=== PATIENT | female | born 2000 | race Asian ===

== ENCOUNTER 2022-08-10 10:13 | Outpatient (REF) | payer BC, MEDICAID, SELFPAY ==
--- NOTE | ~2022-08-10 | XR_ITS ---
EXAMINATION: XR foot LT min 3V CLINICAL INFORMATION: Trauma COMPARISON: None TECHNIQUE: 3 views of the foot FINDINGS: No fracture or dislocation. Joint spaces are maintained. No joint effusion. Minimal soft tissue swelling along the dorsum of the distal foot. XR/XR foot LT min 3V IMPRESSION: Minimal soft tissue swelling along the dorsum of the distal foot. No fracture or dislocation.
== END 2022-08-10 10:14 | disposition home or self-care (01) ==
LOC: HO.HMGCX 10:13
PROVIDERS: PCP Internal Medicine; Visit Provider Physician Assistant
DX: S99.922D Unspecified injury of left foot, subsequent encounter (principal)
CPT/HCPCS: 73630

== ENCOUNTER 2022-11-21 18:42 | Emergency (ER) | payer BC, MEDICAID, SELFPAY ==
--- NOTE | ~2022-11-21 | US_ITS ---
EXAMINATION: US ABDOMEN LIMITED CLINICAL INFORMATION: Right upper quadrant pain. COMPARISON: None available. TECHNIQUE: Real-time imaging of the right upper quadrant abdominal viscera. FINDINGS: PANCREAS: Normal. LIVER: Normal. The liver is normal in size. The liver contour is normal. Parenchymal echogenicity is normal. No focal hepatic lesion. There is no intrahepatic biliary duct dilatation seen. GALLBLADDER: Normal. The gallbladder is physiologically distended without evidence of stones, sludge, polyps, wall thickening or pericholecystic fluid. COMMON BILE DUCT: Normal in caliber measuring 0.2 cm in diameter. RIGHT KIDNEY: Normal. No hydronephrosis. No renal calculi or focal parenchymal lesions. The kidney measures 10.3 cm in maximum dimension. FREE FLUID: None. US/US abdomen limited IMPRESSION: Unremarkable limited abdomen ultrasound.
--- NOTE | ~2022-11-21 | XR_ITS ---
EXAMINATION: XR CHEST CLINICAL INFORMATION: Cough and fever COMPARISON: None available. TECHNIQUE: Frontal view of the chest was obtained. FINDINGS: No significant abnormality is noted involving the heart, lungs, mediastinum, bony thorax or soft tissues. XR/XR chest 1V IMPRESSION: Unremarkable chest examination.
[2022-11-21 19:00] VITALS: BP 129/59; PULSE 116; RESP 20; TEMP 37.6; O2SAT 100; BMI 18.5
--- NOTE | 2022-11-21 19:00 | ED.URI ---
HPI - URI/Sore Throat General Chief Complaint: General Medical <ANAID Fuchs Last Filed: 11/21/22 20:55> Stated Complaint: Fever/Chills/Abd cramps <ANAID Fuchs Last Filed: 11/21/22 20:55> Time Seen by Provider: 11/21/22 20:33 <ANAID Fuchs Last Filed: 11/21/22 20:55> Source: patient <ANAID Fuchs Last Filed: 11/21/22 20:55> Mode of arrival: ambulatory <ANAID Fuchs Last Filed: 11/21/22 20:55> History of Present Illness HPI Narrative: 22yo F w/PMHx asthma c/o fever Tmax 102 (took Tyenol at 1PM), cough, mild SOB, chest discomfort when coughing, and myalgias/chills x today. Also reports severe upper abdominal pain s/p eating this afternoon. Denies travel/sick contacts, vomiting, urinary sx, sick contacts <ANAID Fuchs Last Filed: 11/21/22 20:55> MD elicited complaint: fever, cough, rhinorrhea and nasal congestion <ANAID Fuchs Last Filed: 11/21/22 20:55> Related Data Home Medications: Home Medications Medication Instructions Recorded Confirmed cetirizine 10 mg tablet 10 mg PO DAILY 09/18/21 clindamycin phosphate 1 % topical ml topical 09/18/21 solution famotidine 20 mg tablet 20 mg PO BID 09/18/21 fluticasone propionate 50 1 spray intranasal DAILY 09/18/21 mcg/actuation nasal spray,suspension medroxyprogesterone 150 mg/mL mg IM 09/18/21 intramuscular suspension Previous Rx's Medication Instructions Recorded mupirocin 2 % topical ointment 1 appl topical TID #15 grams 09/18/21 <ANAID Fuchs Last Filed: 11/21/22 20:55> Allergies/Adverse Reactions: Allergies Allergy/AdvReac Type Severity Reaction Status Date / Time wheat Allergy Gastrointestinal Verified 11/21/22 19:04 Upset <ANAID Fuchs Last Filed: 11/21/22 20:55> Review of Systems Review of Systems: Constitutional: + Fever, + Chills, +fatigue ENT/Mouth: No Ear Pain, + Nasal Congestion, No Sinus Pain, No Hoarseness, No sore throat, + Rhinorrhea, No Swallowing Difficulty Cardiovascular: + Chest Pain when coughing, + SOB Respiratory: + Cough, No Sputum, No Wheezing Gastrointestinal: + Nausea, No Vomiting, No Diarrhea, No Constipation, + Abdominal pain Genitourinary: No Dysuria, No Urinary Frequency, No Hematuria, No Urgency, No Flank Pain Musculoskeletal: No joint pain, No Myalgias, No Joint Swelling Skin: No Skin Lesions, No rash Neuro: No Weakness, No Numbness, No Paresthesias <ANAID Fuchs - Last Filed: 11/21/22 20:55> Yes all other systems are reviewed and are negative <ANAID Fuchs - Last Filed: 11/21/22 20:55> Constitutional: Constitutional: Reports as per HPI <ANAID Fuchs - Last Filed: 11/21/22 20:55> [facility] Past Medical History Attestation statement: The following information was validated with the patient. <ANAID Fuchs - Last Filed: 11/21/22 20:55> Social History Social History: Social History Patient Tobacco Use Status: Never used Tobacco Advance Directives: No Advance Directives Information Provided: No <ANAID Fuchs - Last Filed: 11/21/22 20:55> Physical Exam Vital Signs: Vital Signs: Last Vital Signs Temp 100.0 F 11/21/22 21:04 Pulse 116 H 11/21/22 19:00 Resp 20 11/21/22 19:00 BP 129/59 L 11/21/22 19:00 Pulse Ox 100 11/21/22 19:00 O2 Del Method 11/21/22 19:00 BMI result Body Mass Index 18.5 <ANAID Fuchs Last Filed: 11/21/22 20:55> Vital Signs: Last Vital Signs Temp 100.0 F 11/21/22 21:04 Pulse 116 H 11/21/22 19:00 Resp 20 11/21/22 19:00 BP 129/59 L 11/21/22 19:00 Pulse Ox 100 11/21/22 19:00 O2 Del Method 11/21/22 19:00 BMI result Body Mass Index 18.5 <Hunter Rodriguez - Last Filed: 11/21/22 23:54> Const: General: cooperative, healthy appearing and no acute distress <ANAID Fuchs - Last Filed: 11/21/22 20:55> Orientation/consciousness: patient oriented x3 <ANAID Fuchs - Last Filed: 11/21/22 20:55> Limitations: no limitations <ANAID Fuchs - Last Filed: 11/21/22 20:55> HEENT: Head: Yes normal to inspection and Yes atraumatic <ANAID Fuchs - Last Filed: 11/21/22 20:55> Ears: hearing grossly normal bilaterally, external ears normal, TM's normal bilaterally and mastoids normal <ANAID Fuchs - Last Filed: 11/21/22 20:55> General nose exam: Normal external nose present <ANAID Fuchs - Last Filed: 11/21/22 20:55> Face and sinus: Yes normal facial exam <ANAID Fuchs - Last Filed: 11/21/22 20:55> Mouth: Normal oral and palatal mucosa present <ANAID Fuchs - Last Filed: 11/21/22 20:55> Throat: Yes tonsils normal, Yes uvula midline, No peritonsillar mass, Yes posterior oropharynx abnormal (mild erythema), No uvula laterally displaced and No uvular edema <ANAID Fuchs - Last Filed: 11/21/22 20:55> Eyes: General: appearance normal, both eyes and all related structures <ANAID Fuchs - Last Filed: 11/21/22 20:55> EOM: EOMs intact bilaterally <ANAID Fuchs - Last Filed: 11/21/22 20:55> Neck: Neck: Yes normal visual inspection and Yes no meningeal signs <ANAID Fuchs - Last Filed: 11/21/22 20:55> Resp: Effort & Inspection: normal respiratory effort and no respiratory distress <ANAID Fuchs - Last Filed: 11/21/22 20:55> Auscultation: clear to auscultation bilaterally, no crackles, no rhonchi and no wheezes <ANAID Fuchs - Last Filed: 11/21/22 20:55> Cardio: Rate: regular rate <ANAID Fuchs - Last Filed: 11/21/22 20:55> Heart sounds: S1 normal heart sound present and S2 normal heart sound present <ANAID Fuchs - Last Filed: 11/21/22 20:55> GI: Inspection: Yes normal to inspection <ANAID Fuchs - Last Filed: 11/21/22 20:55> Palpation (GI): Soft to palpation, Tenderness to palpation present (GI) in the epigastrum, in the LUQ and in the RUQ; with no rebound tenderness, no guarding and not rigid <ANAID Fuchs - Last Filed: 11/21/22 20:55> Skin: Rashes: no rashes <ANAID Fuchs - Last Filed: 11/21/22 20:55> Wounds: no wounds <ANAID Fuchs - Last Filed: 11/21/22 20:55> Neuro: General: patient oriented x3, tone normal and no meningeal signs <ANAID Fuchs - Last Filed: 11/21/22 20:55> Gait exam (Neuro): Normal gait present <ANAID Fuchs - Last Filed: 11/21/22 20:55> Extrem: General: Yes normal to inspection <ANAID Fuchs - Last Filed: 11/21/22 20:55> Course Course Course Narrative: RME-- 22yo F w/PMHx asthma c/o fever Tmax 102 (took Tyenol at 1PM), cough, SOB, chest discomfort when coughing, and myalgias/chills x today. Denies travel/sick contacts Tachycardic likely from fever, Lungs CTA, TMs WNL, oropharynx mildly erythematous, no exudates or evident of [employer] low suspicion for severe sepsis as likely viral COVID/FLU, CXR, Strep, Motrin ordered -- COVID-19 positive. Influenza and rapid strep negative XR chest 1V IMPRESSION: Unremarkable chest examination. -2100--ED care transferred to ANAID Galvan pending labs, UA and US Results discussed with patient including worrisome signs and symptoms and strict return precautions, and when to return to the emergency department. They verbalized understanding and feel safe for discharge at this time. <ANAID Fuchs - Last Filed: 11/21/22 20:55> Reevaluation(s) Reevaluation #1: Patient received in sign-out at change of shift pending ultrasound the gallbladder, labs given abdominal pain. These tests are unremarkable. The patient's symptoms are likely attributed to COVID-19. She is stable for discharge <Hunter Rodriguez - Last Filed: 11/21/22 23:54> Time: 23:53 <Hunter Rodriguez - Last Filed: 11/21/22 23:54> Medications Administered Discontinued Medications Generic Name Dose Route Start Last Admin Trade Name Freq PRN Reason Stop Dose Admin Sodium Chloride 1,000 mls @ 999 mls/hr 11/21/22 20:45 11/21/22 23:23 Ns IV 11/21/22 21:45 Infused .Q1H1M KETTY Infusion Ibuprofen 400 mg 11/21/22 19:00 11/21/22 19:27 Ibuprofen 400 Mg Tablet PO 11/21/22 19:01 400 mg ONCE ONE Administration <ANAID Fuchs - Last Filed: 11/21/22 20:55> Medications Administered Discontinued Medications Generic Name Dose Route Start Last Admin Trade Name Freq PRN Reason Stop Dose Admin Sodium Chloride 1,000 mls @ 999 mls/hr 11/21/22 20:45 11/21/22 23:23 Ns IV 11/21/22 21:45 Infused .Q1H1M KETTY Infusion Ibuprofen 400 mg 11/21/22 19:00 11/21/22 19:27 Ibuprofen 400 Mg Tablet PO 11/21/22 19:01 400 mg ONCE ONE Administration <Hunter Rodriguez - Last Filed: 11/21/22 23:54> Medical Decision Making Medical Decision Making MDM Narrative: 22yo F w/PMHx asthma c/o fever Tmax 102 (took Tyenol at 1PM), cough, mild SOB, chest discomfort when coughing, and myalgias/chills x today. Also reports severe upper abdominal pain s/p eating this afternoon. On exam low-grade temp 99.7 degrees, tachycardic likely from fever, lungs CTA, abdomen soft with upper tenderness, no rebound or guarding. Concern for viral illness vs pneumonia vs pancreatitis/ cholecystitis/lithiasis. low suspicion for appendicitis/ diverticulitis, ACS/ PE or sepsis at this time. Likely viral etiology Plan: COVID-19/ influenza testing, rapid strep, PO Motrin, labs/ultrasound Please refer to course for remaining clinical decision making, interpretation of labs/imaging results, and discussions with consultants and/or family members. <ANAID Fuchs - Last Filed: 11/21/22 20:55> Differential Diagnosis Differential Diagnoses: The differential diagnosis associated with the presentation includes <ANAID Fuchs - Last Filed: 11/21/22 20:55> As above <ANAID Fuchs - Last Filed: 11/21/22 20:55> Admission/Observation Consideration of admission/observation: Escalation of care including admission/observation considered <ANAID Fuchs - Last Filed: 11/21/22 20:55> Lab Data MDM Lab Attestation statement: I reviewed the patient's lab results. <ANAID Fuchs - Last Filed: 11/21/22 20:55> Result Diagrams: 11/21/22 21:00 11/21/22 21:01 <ANAID Fuchs - Last Filed: 11/21/22 20:55> Labs: Lab Results 11/21/22 11/21/22 11/21/22 Range/Units 19:08 19:08 19:08 WBC (4.8-10.8) X10*3/uL RBC (4.20-5.50) X10*6/uL Hgb (12.0-16.0) g/dl Hct (37.0-47.0) % MCV (80.0-98.0) fL MCH (27.0-33.0) pg MCHC (31.0-35.0) g/dl RDW (11.0-16.0) % Plt Count (160-400) X10*3/uL MPV (9.4-12.3) fL Immature Gran % (Auto) (0.0-0.4) % Neut % (Auto) (45-73) % Lymph % (Auto) (20-40) % [place] % (Auto) (2-11) % Eos % (Auto) (0-4) % Baso % (Auto) (0-2) % Lymph # (Auto) (1.2-4.9) X10*3/uL [place] # (Auto) (0.1-1.2) X10*3/uL Eos # (Auto) (0.0-0.4) X10*3/uL Baso # (Auto) (0.0-0.2) X10*3/uL Abs Immat Gran (auto) (0.00-0.03) X10*3/uL Absolute Neuts (auto) (2.0-8.3) x10*3/uL Absolute Nucleated RBC (0.0-0.012) X10*3/uL Nucleated RBC % (auto) (0.0-0.2) /100WBC Sodium (135-145) mmol/L Potassium (3.3-5.1) mmol/L Chloride (96-108) mmol/L Carbon Dioxide (22-29) mmol/L Anion Gap (12-20) BUN (9-16) mg/dL Creatinine (0.5-1.4) mg/dL Estim Creat Clear Calc Estimated GFR Random Glucose (60-115) mg/dL Calcium (8.4-10.2) mg/dL Magnesium (1.6-2.6) mg/dL Total Bilirubin (0.0-1.0) mg/dL Direct Bilirubin (0.0-0.5) mg/dL AST (5-31) U/L ALT (0-31) U/L Alkaline Phosphatase (39-117) U/L Total Protein (6.5-8.0) g/dL Albumin (3.5-5.0) g/dL Lipase (8-78) U/L COVID-19 (YOMI) Positive A (Negative) COVID-19 Clin Com See Note Influenza Type A (TALA) Negative (Negative) Influenza Type B (TALA) Negative (Negative) Influenza A & B Note See Note S. pyogenes GrpA TALA Negative (Negative) 11/21/22 11/21/22 Range/Units 21:00 21:01 WBC 5.6 (4.8-10.8) X10*3/uL RBC 4.47 (4.20-5.50) X10*6/uL Hgb 13.3 (12.0-16.0) g/dl Hct 39.6 (37.0-47.0) % MCV 88.6 (80.0-98.0) fL MCH 29.8 (27.0-33.0) pg MCHC 33.6 (31.0-35.0) g/dl RDW 12.4 (11.0-16.0) % Plt Count 245 (160-400) X10*3/uL MPV 8.5 L (9.4-12.3) fL Immature Gran % (Auto) 0.2 (0.0-0.4) % Neut % (Auto) 85.6 H (45-73) % Lymph % (Auto) 3.1 L (20-40) % [place] % (Auto) 10.6 (2-11) % Eos % (Auto) 0.0 (0-4) % Baso % (Auto) 0.5 (0-2) % Lymph # (Auto) 0.2 L (1.2-4.9) X10*3/uL [place] # (Auto) 0.6 (0.1-1.2) X10*3/uL Eos # (Auto) 0.0 (0.0-0.4) X10*3/uL Baso # (Auto) 0.0 (0.0-0.2) X10*3/uL Abs Immat Gran (auto) 0.01 (0.00-0.03) X10*3/uL Absolute Neuts (auto) 4.8 (2.0-8.3) x10*3/uL Absolute Nucleated RBC 0.000 (0.0-0.012) X10*3/uL Nucleated RBC % (auto) 0.0 (0.0-0.2) /100WBC Sodium 136 (135-145) mmol/L Potassium 3.9 (3.3-5.1) mmol/L Chloride 104 (96-108) mmol/L Carbon Dioxide 22 (22-29) mmol/L Anion Gap 14 (12-20) BUN 6 L (9-16) mg/dL Creatinine 0.71 (0.5-1.4) mg/dL Estim Creat Clear Calc 85.7 Estimated GFR > 60 Random Glucose 107 (60-115) mg/dL Calcium 8.8 (8.4-10.2) mg/dL Magnesium 2.0 (1.6-2.6) mg/dL Total Bilirubin 0.7 (0.0-1.0) mg/dL Direct Bilirubin 0.2 (0.0-0.5) mg/dL AST 21 (5-31) U/L ALT 16 (0-31) U/L Alkaline Phosphatase 57 (39-117) U/L Total Protein 6.9 (6.5-8.0) g/dL Albumin 4.3 (3.5-5.0) g/dL Lipase 28 (8-78) U/L COVID-19 (YOMI) (Negative) COVID-19 Clin Com Influenza Type A (TALA) (Negative) Influenza Type B (TALA) (Negative) Influenza A & B Note S. pyogenes GrpA TALA (Negative) <ANAID Fuchs - Last Filed: 11/21/22 20:55> Lab Results 11/21/22 11/21/22 11/21/22 Range/Units 19:08 19:08 19:08 WBC (4.8-10.8) X10*3/uL RBC (4.20-5.50) X10*6/uL Hgb (12.0-16.0) g/dl Hct (37.0-47.0) % MCV (80.0-98.0) fL MCH (27.0-33.0) pg MCHC (31.0-35.0) g/dl RDW (11.0-16.0) % Plt Count (160-400) X10*3/uL MPV (9.4-12.3) fL Immature Gran % (Auto) (0.0-0.4) % Neut % (Auto) (45-73) % Lymph % (Auto) (20-40) % [place] % (Auto) (2-11) % Eos % (Auto) (0-4) % Baso % (Auto) (0-2) % Lymph # (Auto) (1.2-4.9) X10*3/uL [place] # (Auto) (0.1-1.2) X10*3/uL Eos # (Auto) (0.0-0.4) X10*3/uL Baso # (Auto) (0.0-0.2) X10*3/uL Abs Immat Gran (auto) (0.00-0.03) X10*3/uL Absolute Neuts (auto) (2.0-8.3) x10*3/uL Absolute Nucleated RBC (0.0-0.012) X10*3/uL Nucleated RBC % (auto) (0.0-0.2) /100WBC Sodium (135-145) mmol/L Potassium (3.3-5.1) mmol/L Chloride (96-108) mmol/L Carbon Dioxide (22-29) mmol/L Anion Gap (12-20) BUN (9-16) mg/dL Creatinine (0.5-1.4) mg/dL Estim Creat Clear Calc Estimated GFR Random Glucose (60-115) mg/dL Calcium (8.4-10.2) mg/dL Magnesium (1.6-2.6) mg/dL Total Bilirubin (0.0-1.0) mg/dL Direct Bilirubin (0.0-0.5) mg/dL AST (5-31) U/L ALT (0-31) U/L Alkaline Phosphatase (39-117) U/L Total Protein (6.5-8.0) g/dL Albumin (3.5-5.0) g/dL Lipase (8-78) U/L COVID-19 (YOMI) Positive A (Negative) COVID-19 Clin Com See Note Influenza Type A (TALA) Negative (Negative) Influenza Type B (TALA) Negative (Negative) Influenza A & B Note See Note S. pyogenes GrpA TALA Negative (Negative) 11/21/22 11/21/22 Range/Units 21:00 21:01 WBC 5.6 (4.8-10.8) X10*3/uL RBC 4.47 (4.20-5.50) X10*6/uL Hgb 13.3 (12.0-16.0) g/dl Hct 39.6 (37.0-47.0) % MCV 88.6 (80.0-98.0) fL MCH 29.8 (27.0-33.0) pg MCHC 33.6 (31.0-35.0) g/dl RDW 12.4 (11.0-16.0) % Plt Count 245 (160-400) X10*3/uL MPV 8.5 L (9.4-12.3) fL Immature Gran % (Auto) 0.2 (0.0-0.4) % Neut % (Auto) 85.6 H (45-73) % Lymph % (Auto) 3.1 L (20-40) % [place] % (Auto) 10.6 (2-11) % Eos % (Auto) 0.0 (0-4) % Baso % (Auto) 0.5 (0-2) % Lymph # (Auto) 0.2 L (1.2-4.9) X10*3/uL [place] # (Auto) 0.6 (0.1-1.2) X10*3/uL Eos # (Auto) 0.0 (0.0-0.4) X10*3/uL Baso # (Auto) 0.0 (0.0-0.2) X10*3/uL Abs Immat Gran (auto) 0.01 (0.00-0.03) X10*3/uL Absolute Neuts (auto) 4.8 (2.0-8.3) x10*3/uL Absolute Nucleated RBC 0.000 (0.0-0.012) X10*3/uL Nucleated RBC % (auto) 0.0 (0.0-0.2) /100WBC Sodium 136 (135-145) mmol/L Potassium 3.9 (3.3-5.1) mmol/L Chloride 104 (96-108) mmol/L Carbon Dioxide 22 (22-29) mmol/L Anion Gap 14 (12-20) BUN 6 L (9-16) mg/dL Creatinine 0.71 (0.5-1.4) mg/dL Estim Creat Clear Calc 85.7 Estimated GFR > 60 Random Glucose 107 (60-115) mg/dL Calcium 8.8 (8.4-10.2) mg/dL Magnesium 2.0 (1.6-2.6) mg/dL Total Bilirubin 0.7 (0.0-1.0) mg/dL Direct Bilirubin 0.2 (0.0-0.5) mg/dL AST 21 (5-31) U/L ALT 16 (0-31) U/L Alkaline Phosphatase 57 (39-117) U/L Total Protein 6.9 (6.5-8.0) g/dL Albumin 4.3 (3.5-5.0) g/dL Lipase 28 (8-78) U/L COVID-19 (YOMI) (Negative) COVID-19 Clin Com Influenza Type A (TALA) (Negative) Influenza Type B (TALA) (Negative) Influenza A & B Note S. pyogenes GrpA TALA (Negative) <Hunter Rodriguez - Last Filed: 11/21/22 23:54> Radiology Impression Discussion of test interpretation with radiology: I have reviewed the radiologist's reading. <ANAID Fuhcs - Last Filed: 11/21/22 20:55> External Record Review External record reviewed: Inpatient record, Office record, Outpatient record, Prior outpatient labs, Prior outpatient radiology, Primary care record and Outside ED record <ANAID Fuchs - Last Filed: 11/21/22 20:55> Discharge Plan Discharge Clinical Impression: [id number] <ANAID Fuchs - Last Filed: 11/21/22 20:55> Patient Disposition: Home, Self-Care <ANAID Fuchs - Last Filed: 11/21/22 20:55> Instructions: COVID-19 (Coronavirus Disease 2019) (ED) <ANAID Fuchs - Last Filed: 11/21/22 20:55> Additional Instructions: At this time you will be okay for discharge. Please self isolate for 5-10 days. Do not expose yourself to others. You may not go to work or school. Please continue to follow cold instructions and wash your hands frequently. You may take Tylenol / Motrin as directed on the bottle for pain or fever. If you have constant or persistent shortness of breath, fever unresolved with medications, chest pain, or your unable to eat or drink please return to the ED CDC Guidelines for home isolation: - Stay away from others - WEAR A MASK if you are sick AND STAY HOME - Cover your mouth and nose with a tissue when you cough or sneeze. Dispose of tissues in a lined trash can and wash your hands immediately with soap and water for at least 20 seconds. If soap and water are not available, clean hands with alcohol-based hand silk screen operator that contains at least 60% alcohol. - Clean your hands often with soap and water for at least 20 seconds - Avoid touching your eyes, nose and mouth with unwashed hands - Do not share dishes, drinking glasses, cups, eating utensils, towels, or bedding with other people in your home. After using these items, wash them thoroughly with soap and water or put in the courtesy clerk. - Clean high-touch surfaces in your isolation area ( sick room and bathroom) every day; let a caregiver clean and disinfect high-touch surfaces in other areas of the home. Clean the area or item with soap and water or another detergent if it is dirty. Then, use a household disinfectant. - Limit contact with pets and animals: If you must care for a pet, wash your hands before and after interacting with them) <ANAID Fuchs - Last Filed: 11/21/22 20:55> Prescriptions: No Action fluticasone propionate 50 mcg/actuation spray,suspension 1 spray intranasal DAILY medroxyprogesterone 150 mg/mL suspension IM cetirizine 10 mg tablet 10 mg PO DAILY famotidine 20 mg tablet 20 mg PO BID clindamycin phosphate 1 % solution topical mupirocin 2 % ointment 1 appl topical TID Qty: 15 0RF <ANAID Fuchs - Last Filed: 11/21/22 20:55> Referrals: Rylee Malave MD [Primary Care Provider] - 1 week <ANAID Fuchs - Last Filed: 11/21/22 20:55>
[2022-11-21] MEDS: Ibuprofen 400 MG TABLET PO (19:27)
[2022-11-21 19:30] LABS: COVID-19 Test Positive (Negative); IDNOW Serial# 08D9AD1C
[2022-11-21 19:39] LABS: IDNOW Serial# 6674DD1D; IDNOW Serial# BCCEAD1C; Influenza A Negative (Negative); Influenza B2 Negative (Negative); Strep A Nucleic Acid Negative (Negative)
[2022-11-21] MEDS: 0.9 % Sodium Chloride 1,000 ML 999 ML IV (21:01)
[2022-11-21 21:04] VITALS: TEMP 37.8
[2022-11-21 21:05] LABS: MANUAL DIFF FLAG NO
--- NOTE | 2022-11-21 21:06 | PC.NURSE ---
pt medicated per NOV- temp still elevated at 100.0 F 20g in R AC infusing NS 0.9%. pt awaiting abdominal ultrasound as well as lab results. resting quiety sig other at bedside
[2022-11-21 21:07] LABS: Basophils Percent Auto 0.5 % (0-2); Hematocrit 39.6 % (37.0-47.0); Hemoglobin 13.3 g/dl (12.0-16.0); Imm Gran Abs Auto 0.01 X10*3/uL (0.00-0.03); Imm Gran Pct Auto 0.2 % (0.0-0.4); Lymphocytes Absolute Auto 0.2 X10*3/uL (1.2-4.9); Lymphocytes Percent Auto 3.1 % (20-40); Mean Corpuscular HGB Conc 33.6 g/dl (31.0-35.0); Mean Corpuscular Hemoglobin 29.8 pg (27.0-33.0); Mean Corpuscular Volume 88.6 fL (80.0-98.0); Mean Platelet Volume 8.5 fL (9.4-12.3); Monocytes Absolute Auto 0.6 X10*3/uL (0.1-1.2); Monocytes Percent Auto 10.6 % (2-11); Neutrophils Absolute Auto 4.8 x10*3/uL (2.0-8.3); Neutrophils Percent Auto 85.6 % (45-73); Platelet Count 245 X10*3/uL (160-400); Red Blood Count 4.47 X10*6/uL (4.20-5.50); Red Cell Distribution Width 12.4 % (11.0-16.0); White Blood Count 5.6 X10*3/uL (4.8-10.8)
[2022-11-21 21:30] LABS: Alanine Aminotransferase 16 U/L (0-31); Albumin Level 4.3 g/dL (3.5-5.0); Alkaline Phosphatase 57 U/L (39-117); Anion Gap 14 (12-20); Aspartate Amino Transferase 21 U/L (5-31); Bilirubin Direct 0.2 mg/dL (0.0-0.5); Bilirubin Total 0.7 mg/dL (0.0-1.0); Blood Urea Nitrogen 6 mg/dL (9-16); Calcium 8.8 mg/dL (8.4-10.2); Carbon Dioxide 22 mmol/L (22-29); Chloride 104 mmol/L (96-108); Creatinine Clr Calc Pharmacy 85.7; Estimated Glomerular Filt Rate > 60; Glucose Random 107 mg/dL (60-115); Lipase 28 U/L (8-78); Potassium 3.9 mmol/L (3.3-5.1); Sodium 136 mmol/L (135-145); Total Protein 6.9 g/dL (6.5-8.0)
[2022-11-21 22:00] VITALS: BP 112/72; PULSE 64; RESP 18; O2SAT 96
== END 2022-11-22 00:01 | disposition home or self-care (01) ==
PROVIDERS: Physician Assistant; Emergency Provider Emergency Medicine; PCP Internal Medicine
DX: U07.1 COVID-19 (principal); R50.9 Fever, unspecified; R06.02 Shortness of breath; R00.0 Tachycardia, unspecified
CPT/HCPCS: 36415; 71045; 76705; 80048; 80076; 83690; 83735; 85025; 87502; 87635; 87651; 96360; 96361; 99284

== ENCOUNTER 2024-01-28 15:46 | Outpatient (AMB) | payer BC, SELFPAY ==
--- NOTE | 2024-01-28 15:54 | A.OFFPC_ITS ---
Vital Signs 01/28/24 15:56 Height 5 ft 1 in Weight 97 lb BMI 18.3 BP 110/66 Blood Pressure Location Rt brachial Position Sitting Pulse 72 Pulse Source Pulse Oximeter Pulse Oximetry (%) 99 Oxygen Delivery Method Room Air Intake Visit Reasons: New patient Intake Note: Patient here to establish care. pt would like to have allergy testing done for wheat. Allergies wheat Allergy (Verified 01/28/24 17:20) Gastrointestinal Upset Medication List - Last Reconciled 01/28/24 by ANGELIKA Krishnamurthy albuterol 90 mcg/actuation mcg inhalation cetirizine 10 mg PO DAILY Tobacco use date assessed: 01/28/24 Dental Screening Dental Screen Date: 01/28/24 Did you have a dental visit in the last 12 months?: No Did you have a dental problem in the last 6 months where you did not have access to dental care?: No Was dental information given to patient?: Patient has dentist HPI New patient HPI Details New pt is here for a PE. Will order labs. Has a lead python developer. Pt is interested in seeing a therapist. Will have team reach out to pt. Denies any SI and HI. PFSH Surgical History Hx of eye surgery Social History Housing: Condominium Patient Tobacco Use Status: Never used Tobacco Current occupational status: employed Current occupational exposures/hazards: No Cognitive needs: No Hearing needs: No Vision needs: Yes Questionnaire PHQ-9 Over the last 2 weeks, how often have you been bothered by any of the following problems? 1. Little interest or pleasure in doing things: not at all 2. Feeling down, depressed, or hopeless: not at all 3. Trouble falling or staying asleep, or sleeping too much: not at all 4. Feeling tired or having little energy: nearly every day 5. Poor appetite or overeating: not at all 6. Feeling bad about yourself - or that you are a failure or have let yourself or your family down: not at all 7. Trouble concentrating on things, such as reading the newspaper or watching television: more than half the days 8. Moving or speaking so slowly that other people could have noticed. Or the opposite - being so fidgety or restless that you have been moving around a lot more than usual: not at all 9. Thoughts that you would be better off or of hurting yourself in some way: not at all Total score: 5 Depression Screening Interpretation: Negative Depression Screening Done: Yes 68460 - PHQ-9 Billing: Yes Source: Developed by Drs. Girish Rendon, Dominique Danielson, Anthony Martinez and colleagues, with an educational tabitha from [employer] Thrive Questionnaire Date Thrive assessed: 01/28/24 I am a: Patient What is your living situation today?: I have a steady place to live Within the past 12 months, did the food you bought not last and you didn't have the money to get more?: Never true Within the past 12 months, did you worry whether your food would run out before you got money to buy more?: Never true Do you have trouble paying for medicines?: No Do you have trouble getting transportation to medical appointments?: No Do you have trouble paying your heating and electricity bill?: No Do you have trouble taking care of your child, family member or friend?: No Do you have trouble with day-to-day activities such as bathing, preparing meals, shopping, managing finances, etc.?: No Are you currently unemployed and looking for a job?: No Are you interested in more education?: No Currently or been in a relationship where the following occur: I choose not to answer this question THRIVE Score: 0 AUDIT C Alcohol Use Questionnaire (AUDIT-C) 1. How often do you have a drink containing alcohol?: Never 3. How often do you have six or more drinks on one occasion?: Never Total Score: 0 Score Reviewed/Action Taken: No WADE-7 AMB Questionnaire WADE-7 Date WADE - 7 assessed: 01/28/24 Feeling nervous, anxious, or on edge: 2 = More than half the days Not being able to stop or control worryin = Not at all Worrying too much about different things: 0 = Not at all Trouble relaxin = Several days Being so restless that it is hard to sit still: 0 = Not at all Becoming easily annoyed or irritable: 0 = Not at all Feeling afraid as if something awful might happen: 0 = Not at all Total WADE-7 score (0-4 normal; 5-9 mild; 10-14 moderate; 15-21 severe): 3 Source: Developed by Drs. Girish Rendon, Dominique Danielson, Anthony Martinez and colleagues, with an educational tabitha from [employer] WADE-7 Assessment Billing WADE-7 Assessment Tool: WADE-7 Assessment 93191 Review of Systems Const Denies chills and Denies fever(s) Eyes Denies blurry vision ENT Denies vertigo, Denies dizziness and Denies sore throat Card Denies chest pain at rest, Denies chest pain with activity, Denies diaphoresis, Denies dyspnea and Denies dyspnea on exertion Resp Denies cough, Denies dyspnea, Denies dyspnea on exertion and Denies wheezing GI Denies abdominal pain, Denies melena, Denies hematochezia, Denies constipation, Denies diarrhea and Denies loose stools Denies hematuria Musc Denies numbness and Denies tingling Skin/Breast Denies lesions Neuro Denies vertigo, Denies dizziness, Denies numbness and Denies tingling Psych Denies homicidal ideation, Denies suicidal ideation and Denies other (substance abuse) Aller/Immun Denies wheezing Physical exam (Primary Care) Vital Signs: Last Vital Signs Pulse 72 01/28/24 15:56 BP 110/66 01/28/24 15:56 Pulse Ox 99 01/28/24 15:56 Oxygen Delivery Method Room Air 01/28/24 15:56 BMI result Body Mass Index 18.3 Tobacco/Smoking Status: Tobacco use Status Tobacco use date assessed 01/28/24 01/28/24 16:02 Patient Tobacco Use Status Never used Tobacco 01/28/24 15:55 Depression Screening Interpretation: Negative Currently or been in a relationship where the following occur: I choose not to answer this question Const Other: small, skinny stature General: cooperative Nutritional Appearance: well nourished Orientation/consciousness: patient oriented x3 HENMT Head: Yes normal to inspection, Yes normocephalic and Yes atraumatic Ears: TM's normal bilaterally Eyes General: appearance normal, both eyes and all related structures Alignment and Position: alignment normal and position normal Neck Neck: Yes normal visual inspection and Yes no lymphadenopathy Thyroid: Thyroid normal Resp Effort & Inspection: normal respiratory effort Auscultation: clear to auscultation bilaterally Cardio Rate: regular rate Rhythm: regular rhythm Heart sounds: S1 normal heart sound present, S2 normal heart sound present and no murmurs GI Palpation (GI): Soft to palpation and nontender Auscultation: normal bowel sounds Skin Rashes: no rashes Neuro General: patient oriented x3, moves all extremities, no focal motor deficits and deep tendon reflexes 2+ bilaterally Romberg Test: Negative Psych Appearance: grossly normal Mental Status: mental status grossly normal Speech and movement: Normal speech and movement present Affect: normal affect Attitude: cooperative Thought process: Normal thought process present Thought content: Normal thought content present Insight: Good insight present (Psych) Judgement: Good judgement present (Psych) Assessment and Plan Assessment & Plan (1) Physical exam: Code(s): Z00.00 - Encounter for general adult medical examination without abnormal findings Plan The patient agreed to the use of a medical diagnostic radiographer for this encounter. Scribed for ANGELIKA Geller by Olesya Dejesus medical diagnostic radiographer, on 01/28/2024 at 16:30 EST. Orders: Orders TSH reflex Free T4 Today Z00.00 - Encounter for general adult medical examination without abnormal findings UA CC w/rflx Micro + Cult Today Z00.00 - Encounter for general adult medical examination without abnormal findings Complete Blood Count Auto Diff Today Z00.00 - Encounter for general adult medical examination without abnormal findings Comprehensive [place]. Panel Fast Today Z00.00 - Encounter for general adult medical examination without abnormal findings Lipid Panel Today Z00.00 - Encounter for general adult medical examination without abnormal findings Coding Level of Care Code New Pt Prev Care 18-39yr(60228 Diagnoses Physical exam Z00.00 Additional Codes WADE-7 Assessment Billing - WADE-7 Assessment Tool: WADE-7 Assessment 53583 ([id number])
[2024-01-28 15:56] VITALS: BP 110/66; PULSE 72; O2SAT 99; BMI 18.3
== END 2024-01-28 16:43 | disposition home or self-care (01) ==
LOC: HO.HMGC 15:46
PROVIDERS: PCP Nurse Practitioner Family; Visit Provider Nurse Practitioner Family
DX: Z00.00 Encounter for general adult medical examination without abnormal findings (principal)
CPT/HCPCS: 99385; 99395

== ENCOUNTER 2024-03-12 08:02 | Outpatient (REF) | payer BC, SELFPAY ==
[2024-03-12 10:16] LABS: Appearance Urine Clear; Color Urine Yellow; Glucose Urine UA Negative (Negative); Leukocyte Esterase Urine Negative (Negative); Nitrite Urine Negative (Negative); PH 7.5 (5.0-9.0); Urine Blood Negative (Negative); Urine Ketones Trace mg/dL (Negative); Urine Protein Negative (Neg-Trace)
[2024-03-12 10:24] LABS: MANUAL DIFF FLAG NO
[2024-03-12 10:37] LABS: Basophils Absolute Auto 0.1 X10*3/uL (0.0-0.2); Basophils Percent Auto 1.3 % (0-2); Eosinophils Absolute Auto 0.2 X10*3/uL (0.0-0.4); Eosinophils Percent Auto 4.6 % (0-4); Hematocrit 42.1 % (37.0-47.0); Hemoglobin 14.2 g/dl (12.0-16.0); Imm Gran Abs Auto 0.01 X10*3/uL (0.00-0.03); Imm Gran Pct Auto 0.3 % (0.0-0.4); Lymphocytes Absolute Auto 1.3 X10*3/uL (1.2-4.9); Mean Corpuscular HGB Conc 33.7 g/dl (31.0-35.0); Mean Corpuscular Hemoglobin 31.3 pg (27.0-33.0); Mean Corpuscular Volume 92.9 fL (80.0-98.0); Monocytes Absolute Auto 0.5 X10*3/uL (0.1-1.2); Monocytes Percent Auto 12.1 % (2-11); Neutrophils Absolute Auto 1.9 x10*3/uL (2.0-8.3); Neutrophils Percent Auto 48.7 % (45-73); Platelet Count 229 X10*3/uL (160-400); Red Blood Count 4.53 X10*6/uL (4.20-5.50); White Blood Count 3.9 X10*3/uL (4.8-10.8)
[2024-03-12 10:46] LABS: Alanine Aminotransferase 14 U/L (0-31); Albumin Level 4.5 g/dL (3.5-5.0); Alkaline Phosphatase 47 U/L (39-117); Anion Gap 13 (12-20); Aspartate Amino Transferase 21 U/L (5-31); Bilirubin Total 1.1 mg/dL (0.0-1.0); Blood Urea Nitrogen 7 mg/dL (9-16); Calcium 9.4 mg/dL (8.4-10.2); Carbon Dioxide 25 mmol/L (22-29); Chloride 105 mmol/L (96-108); Cholesterol 162 mg/dL (<200); Estimated Glomerular Filt Rate > 60; Glucose Fasting 85 mg/dL (60-99); HDL Cholesterol 68 mg/dL (>40); LDL Cholesterol Calculated 77 mg/dL (<100); Potassium 3.9 mmol/L (3.3-5.1); Sodium 139 mmol/L (135-145); Total Protein 7.5 g/dL (6.5-8.0); Triglycerides 89 mg/dL (<150)
[2024-03-12 11:04] LABS: TSH reflex Free T4 1.24 uIU/mL (0.32-4.0)
== END 2024-03-12 08:03 | disposition home or self-care (01) ==
LOC: HO.HMGCLDS 08:02
PROVIDERS: PCP Nurse Practitioner Family; Visit Provider Nurse Practitioner Family
DX: Z00.00 Encounter for general adult medical examination without abnormal findings (principal)
CPT/HCPCS: 36415; 80053; 80061; 81003; 84443; 85025

== ENCOUNTER → 2024-03-17 15:09 | Outpatient (AMB) | payer BC, SELFPAY ==
[2024-03-17 15:20] VITALS: BP 118/66; PULSE 77; TEMP 36.8; O2SAT 97; BMI 18.3
--- NOTE | 2024-03-17 15:20 | MHC.OFFWIV ---
Intake Vital Signs 03/17/24 15:20 Height 5 ft 1 in Weight 97 lb 2 oz BMI 18.3 BP 118/66 Blood Pressure Location Rt brachial Position Sitting Pulse 77 Pulse Source Pulse Oximeter Temp 98.2 F Temp Source Oral Pulse Oximetry (%) 97 Intake Visit Reasons: Pain weakness shoulder/arms Intake Note: pt is here for arm and shoulder pain with weakness Patient Tobacco Use Status: Never used Tobacco Allergies wheat Allergy (Verified 03/17/24 15:21) Gastrointestinal Upset Do you need a note to return to daycare/school/sports/work: No HPI HPI Comments History of Present Illness Details Patient is a 24-year-old female complaining of multiple issues but only she has pain in her elbow joints that has moved up to her shoulder joints which is causing her weakness which has gotten worse over the last 3 days. She states she is unable to lift her arms over her head without pain. 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 She states she has had no trauma. She denies any recent tick bites or fevers. She states she has a long history of joint pain and weight loss and was being worked up by a neurologist for MS which was ruled out. She states she was being worked up for celiac by a GI doctor and that was ruled out. She states she did get ruled out for rheumatoid arthritis but was in the middle of a workup for lupus when she left her previous doctor because she was not happy with the care she was getting there. She also mentions she used to weigh about 120 lb and now can not get over 97 lb. She is adopted and does not know about her family medical history. She states she did do some labs recently with her PCP and was found to have a low white blood cell count which she is repeating in 6 weeks. PFSH Surgical History Hx of eye surgery Social History Housing: Condominium Patient Tobacco Use Status: Never used Tobacco Current occupational status: employed Current occupational exposures/hazards: No Cognitive needs: No Hearing needs: No Vision needs: Yes Review of Systems Const All systems reviewed & are unremarkable except as noted in HPI and below Physical Exam Vital Signs: Last Vital Signs Temp 98.2 F 03/17/24 15:20 Pulse 77 03/17/24 15:20 BP 118/66 03/17/24 15:20 Pulse Ox 97 03/17/24 15:20 BMI result Body Mass Index 18.3 Const General: cooperative, healthy appearing, comfortable, no acute distress and well developed Orientation/consciousness: patient oriented x3 Limitations: no limitations HEENT Head: Yes normal to inspection Eyes General: appearance normal, both eyes and all related structures Neck Neck: Yes normal visual inspection and Yes full ROM Resp Effort & Inspection: normal respiratory effort and able to speak in complete sentences Skin General skin exam: no rashes or lesions noted Neuro General: patient oriented x3 Extrem General: Yes normal to inspection Right upper extremity: normal to inspection and shoulder/upper arm Details: abnormal ROM Details: pain with active ROM Details: in ADduction Left upper extremity: normal to inspection and shoulder/upper arm Details: inspection abnormal and abnormal ROM Details: pain with active ROM Details: in ADduction Assessment & Plan Assessment & Plan (1) Shoulder pain, bilateral: Code(s): M25.511 - Pain in right shoulder; M25.512 - Pain in left shoulder Qualifiers: Chronicity: acute Qualified Code(s): M25.511 - Pain in right shoulder; M25.512 - Pain in left shoulder Plan: Recommended taking diclofenac around the clock for the next 4 days and following up with us on Friday if the pain and weakness continues. She would need to get in with her PCP, Mina Lazaro MEAT DEPARTMENT MANAGER, next week for further workup. Please schedule if she calls. Plan see above Medications: New diclofenac potassium 50 mg PO BID 10 tabs 0RF Coding Level of Care Code Est Pt Level 3 (22867) Diagnoses Acute pain of both shoulders M25.511; M25.512 Chronicity: acute
== END ==
PROVIDERS: PCP Nurse Practitioner Family; Visit Provider Physician Assistant
DX: M25.511 Pain in right shoulder (principal); M25.512 Pain in left shoulder
CPT/HCPCS: 99213

== ENCOUNTER 2024-03-19 16:28 | Emergency (ER) | payer BC, SELFPAY ==
--- NOTE | ~2024-03-19 | CT_ITS ---
EXAMINATION: CT CERVICAL SPINE WITHOUT CONTRAST CLINICAL INFORMATION: Bilateral arm weakness. COMPARISON: Cervical spine MRI dated 10/31/2017. TECHNIQUE: Noncontrast computed tomography of the cervical spine was performed. This CT examination was performed using dose optimization techniques as appropriate, variously including the following: *Automated exposure control *Adjustment of mA and/or kV according to patient size (this includes techniques or standardized protocols for targeted exams where dose is matched to indication/reason for exam; i.e. extremities or head) *Use of iterative reconstruction technique DLP: 949 mGy-cm FINDINGS: The vertebral bodies and posterior elements are anatomically aligned. Vertebral body heights are preserved. Intervertebral disc space heights are preserved. The prevertebral soft tissue is normal in appearance. There is no acute cervical spine fracture. There is no significant foraminal or central canal stenosis. The thyroid gland is normal in appearance. Lung apices are clear. CT/CT cervical spine wo IV con IMPRESSION: No acute osseous cervical spine abnormality. No significant foraminal or spinal canal stenosis. Fleischner guidelines were followed.
--- NOTE | ~2024-03-19 | CT_ITS ---
EXAMINATION: CT HEAD WITHOUT CONTRAST CLINICAL INFORMATION: Bilateral arm weakness. COMPARISON: MRI brain dated 10/22/2017. TECHNIQUE: Contiguous axial imaging was performed from the skull base to vertex without intravenous administration of contrast. This CT examination was performed using dose optimization techniques as appropriate, variously including the following: *Automated exposure control *Adjustment of mA and/or kV according to patient size (this includes techniques or standardized protocols for targeted exams where dose is matched to indication/reason for exam; i.e. extremities or head) *Use of iterative reconstruction technique DLP: 949 mGy-cm FINDINGS: There is no acute intracranial hemorrhage. There is no evidence of acute/subacute cerebral or cerebellar infarction. There is no midline shift or mass effect. There is no significant white matter disease. No extra-axial fluid collection. The ventricles are normal in size. The orbits are symmetric and within normal limits. The mastoid air cells are well aerated. There is mild mucosal thickening along the posterior wall of the left maxillary sinus. CT/CT head/brain wo IV con IMPRESSION: No acute intracranial abnormality.
--- NOTE | 2024-03-19 16:54 | ED_ITS ---
HPI - Extremity Injury (Upper) General Chief Complaint: Extremity Injury, Upper Stated Complaint: arm weakness 3-4 days, skin on arms/ shoulders num Time Seen by Provider: 03/19/24 17:38 Source: patient and RN notes reviewed Limitations: no limitations History of Present Illness HPI narrative: 24-year-old female who denies significant past medical history presents for evaluation of bilateral shoulder pain and numbness and tingling. Patient states she had been feeling well until she awoke on March 16 with symptoms. Patient states that she had pain that began in both of her shoulders and radiating down her arms into her elbows. She reports it has progressed to numbness and tingling in an isolated area from the top of her shoulders to the mid biceps bilaterally. She also reports weakness in her hands bilaterally stating that she is dropping things at work and is having difficulty typing. 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 She denies any specific trauma to the head or neck. She denies any vision changes. No neck or back pain. History of similar symptoms in the past but they only lasted a short amount of time, less than 1 day. Patient states that on March 17 she went to urgent care and was given diclofenac. Patient states that she has not had any relief with this. Due to the persistent symptoms she presents to the emergency department today for further evaluation. She denies any recent travel. No recent insect bites. She has been eating and drinking normally. She denies any tobacco, alcohol or illicit drug or pill use. She takes no home medications. Related Data Home Medications ?Medication ?Instructions ?Recorded ?Confirmed cetirizine 10 mg tablet 10 mg PO DAILY 09/18/21 01/28/24 albuterol 90 mcg/actuation aerosol mcg inhalation 01/28/24 01/28/24 inhaler Previous Rx's ?Medication ?Instructions ?Recorded diclofenac potassium 50 mg tablet 50 mg PO BID #10 tabs 03/17/24 dexamethasone 4 mg tablet 4 mg PO BID #10 tabs 03/19/24 methocarbamol 750 mg tablet 750 mg PO TID PRN muscle spasm #20 03/19/24 tabs Allergies Allergy/AdvReac Type Severity Reaction Status Date / Time wheat Allergy Gastrointestinal Verified 03/19/24 16:57 Upset Review of Systems 2 Constitutional: Constitutional: Denies chills, Denies fever(s) and Denies headache(s) Eyes: Eyes: Denies change in vision and Denies other (No redness.) ENT: Denies headache(s), Denies nasal congestion, Denies nasal discharge, Denies neck pain and Denies sore throat Cardiovascular: Cardiovascular: Denies chest pain and Denies palpitations Respiratory: Respiratory: Denies cough Gastrointestinal: Gastrointestinal: Denies abdominal pain, Denies nausea and Denies vomiting Genitourinary: Genitourinary: Denies dysuria and Denies urinary urgency Musculoskeletal: Musculoskeletal: Denies back pain and Denies neck pain Integumentary/Breasts: Skin/Breast: Denies rash Neurologic: Denies headache(s), Denies focal weakness and Reports paresthesias Psychiatric: Psychiatric: Denies depression Endocrine: Endocrine: Denies palpitations [facility] Past Medical History Attestation statement: The following information was validated with the patient. [facility] Narrative: Denies Source: old records reviewed Surgical History Hx of eye surgery Social History Social History Housing: Condominium Patient Tobacco Use Status: Never used Tobacco Advance Directives: No Advance Directives Information Provided: No Do you have a plan to hurt others: No Plan Current occupational status: employed Current occupational exposures/hazards: No Cognitive needs: No Hearing needs: No Vision needs: Yes Physical Exam 2 Vital Signs: Vital Signs: Last Vital Signs Temp 98.7 F 03/19/24 16:55 Pulse 59 03/19/24 18:00 Resp 16 03/19/24 18:00 BP 107/71 03/19/24 18:00 Pulse Ox 98 03/19/24 18:00 O2 Del Method Room Air 03/19/24 18:00 BMI result Body Mass Index 18.3 Const: General: cooperative, alert, awake and Physically active Nutritional Appearance: thin HEENT: Other: Normocephalic atraumatic, pupils are equal round and reactive to light. Auditory canals are patent. Oropharynx is moist. Teeth are in good repair. No difficulty with swallowing. Nares are patent. Neck: Other: There is no spinous, paraspinous or paravertebral tenderness. There is mild tenderness to the trapezius muscles bilaterally, greater on the right. Right trapezius has [id number] spasm. Resp: Effort & Inspection: normal respiratory effort Auscultation: clear to auscultation bilaterally Cardio: Rate: regular rate Rhythm: regular rhythm Extrem: Other: Ratings Analyst is 4/5 bilaterally of the upper extremities. Radial pulses are +2 and equal bilaterally. Full range of motion with exacerbation of pain with adduction of the arms bilaterally. Negative Tinels sign. There is no large muscle group wasting or tenderness. Course Course Course Narrative: This is an RME performed by Debra York CNP: Additional HPI, ROS, PE not included below will be deferred to primary provider. Patient is a 24-year-old female who presents to the emergency department for evaluation of pain to the bilateral shoulders and bilateral elbows. Onset was approximately 4 days ago. Three days ago she noticed some neck stiffness. She was evaluated at her primary care doctor's office, she was prescribed diclofenac without relief. Over the past 2 days she is noticed numbness to the right upper extremity from the shoulder to just above the elbow and the shoulder extending to the deltoid. She denies any trauma or injury. She denies any known tick bites, however she does admit that she has been recent wooded areas over the past few months and expresses concern exposure. Plan: Labs, tick-borne panel Reevaluation(s) Reevaluation #1: 6:45 p.m. patient is resting comfortably at this time. Reviewed all labs, no acute process. The serology testing is pending at this time. CT of the brain and cervical spine is pending as well. Patient is willing to try mild muscle relaxer systems Robaxin as well as Decadron. First dose given in the emergency department. 7:45 p.m. patient is resting comfortably at this time. She reports some relief from the medication at this time. CT results returned, no acute process. She feels comfortable with discharge plan home. Tick-borne disease PCR is pending at this time. The patient has been made aware of this. She feels comfortable with discharge and will follow up with PCP. Patient expresses understanding of all discharge instructions and has no further questions at this time Medications Administered Discontinued Medications Generic Name Dose Route Start Last Admin Trade Name Freq PRN Reason Stop Dose Admin Dexamethasone 8 mg 03/19/24 18:56 03/19/24 19:21 Dexamethasone 4 Mg Tablet PO 03/19/24 18:57 8 mg ONCE ONE Administration Methocarbamol 750 mg 03/19/24 18:56 03/19/24 19:21 Methocarbamol 750 Mg Tablet PO 03/19/24 18:57 750 mg ONCE ONE Administration Medical Decision Making Medical Decision Making [facility] Narrative: 24-year-old female who denies significant past medical history, presents with bilateral shoulder pain. Review of patient's outpatient visit on March 17, reports that she has seen a neurologist in the past for similar symptoms and had MS ruled out, in addition had been seen by GI of and worked up for celiac which was also ruled out as well as rheumatoid arthritis. Patient states she was also mid workup for lupus. Patient confirms this as accurate. We will repeat lab work today, including tick-borne illnesses and CPK. In addition imaging of the brain and cervical spine. Differential Diagnosis Differential Diagnoses: The differential diagnosis associated with the presentation includes Disc herniation Muscle spasm Nerve impingement Muscle strain Metabolic abnormality MS and tick-borne disease less likely. Admission/Observation Consideration of admission/observation: Escalation of care including admission/observation considered Lab Data [facility] Lab Attestation statement: I reviewed the patient's lab results. 03/19/24 17:25 03/19/24 17:25 Labs: Lab Results 03/19/24 03/19/24 Range/Units 17:25 18:17 WBC 6.0 (4.8-10.8) X10*3/uL RBC 4.44 (4.20-5.50) X10*6/uL Hgb 14.0 (12.0-16.0) g/dl Hct 41.1 (37.0-47.0) % MCV 92.6 (80.0-98.0) fL MCH 31.5 (27.0-33.0) pg MCHC 34.1 (31.0-35.0) g/dl RDW 12.1 (11.0-16.0) % Plt Count 277 (160-400) X10*3/uL MPV 8.4 L (9.4-12.3) fL Immature Gran % (Auto) 0.3 (0.0-0.4) % Neut % (Auto) 64.4 (45-73) % Lymph % (Auto) 26.8 (20-40) % [place] % (Auto) 6.5 (2-11) % Eos % (Auto) 1.2 (0-4) % Baso % (Auto) 0.8 (0-2) % Lymph # (Auto) 1.6 (1.2-4.9) X10*3/uL [place] # (Auto) 0.4 (0.1-1.2) X10*3/uL Eos # (Auto) 0.1 (0.0-0.4) X10*3/uL Baso # (Auto) 0.1 (0.0-0.2) X10*3/uL Abs Immat Gran (auto) 0.02 (0.00-0.03) X10*3/uL Absolute Neuts (auto) 3.8 (2.0-8.3) x10*3/uL Absolute Nucleated RBC 0.000 (0.0-0.012) X10*3/uL Nucleated RBC % (auto) 0.0 (0.0-0.2) /100WBC Sodium 141 (135-145) mmol/L Potassium 4.0 (3.3-5.1) mmol/L Chloride 107 (96-108) mmol/L Carbon Dioxide 27 (22-29) mmol/L Anion Gap 11 L (12-20) BUN 12 (9-16) mg/dL Creatinine 0.81 (0.5-1.4) mg/dL Estim Creat Clear Calc 73.1 Estimated GFR > 60 Random Glucose 93 (60-115) mg/dL Calcium 9.8 (8.4-10.2) mg/dL Total Bilirubin 0.7 (0.0-1.0) mg/dL AST 17 (5-31) U/L ALT 15 (0-31) U/L Alkaline Phosphatase 46 (39-117) U/L Total Creatine Kinase 55 (26-140) U/L Total Protein 7.7 (6.5-8.0) g/dL Albumin 4.7 (3.5-5.0) g/dL TSH 1.99 (0.32-4.0) uIU/mL Urine Test NEGATIVE (NEGATIVE) Radiology Impression Discussion of test interpretation with radiology: I have reviewed the radiologist's reading. Radiologist Impression: [address] [place] [address] CT Scan Report Signed Patient: Kathya Hubbard MR#: [id number] : 2000 Acct:[id number] Age/Sex: 24 / F ADM Date: 03/19/24 Loc: HO.ED Attending Dr: Ordering Physician: Jimmy Atkinson Date of Service: 03/19/24 Procedure(s): CT cervical spine wo IV con Accession Number(s): [id number] cc: Mina Lazaro [facility]-; Jimmy Atkinson~ EXAMINATION: CT CERVICAL SPINE WITHOUT CONTRAST CLINICAL INFORMATION: Bilateral arm weakness. COMPARISON: Cervical spine MRI dated 10/31/2017. TECHNIQUE: Noncontrast computed tomography of the cervical spine was performed. This CT examination was performed using dose optimization techniques as appropriate, variously including the following: *Automated exposure control *Adjustment of mA and/or kV according to patient size (this includes techniques or standardized protocols for targeted exams where dose is matched to indication/reason for exam; i.e. extremities or head) *Use of iterative reconstruction technique DLP: 949 mGy-cm FINDINGS: The vertebral bodies and posterior elements are anatomically aligned. Vertebral body heights are preserved. Intervertebral disc space heights are preserved. The prevertebral soft tissue is normal in appearance. There is no acute cervical spine fracture. There is no significant foraminal or central canal stenosis. The thyroid gland is normal in appearance. Lung apices are clear. CT/CT cervical spine wo IV con IMPRESSION: No acute osseous cervical spine abnormality. No significant foraminal or spinal canal stenosis. Fleischner guidelines were followed. Dictated By: Isaias Carranza Jr DO Signed By: <Electronically signed by Isaias Carranza Jr, DO in OV> 03/19/24 193 DD/ 11 TD/TT: Carton Repairer: JAMES [address] [address] [address] Scan Report Signed Patient: Kathya Hubbard MR#: [id number] : 2000 Acct:[id number] Age/Sex: 24 / F ADM Date: 03/19/24 Loc: HO.ED Attending Dr: Ordering Physician: Jimmy Atkinson Date of Service: 03/19/24 Procedure(s): CT head/brain wo IV con Accession Number(s): [id number] [facility] Jimmy Atkinson~ EXAMINATION: CT HEAD WITHOUT CONTRAST CLINICAL INFORMATION: Bilateral arm weakness. COMPARISON: MRI brain dated 10/22/2017. TECHNIQUE: Contiguous axial imaging was performed from the skull base to vertex without intravenous administration of contrast. This CT examination was performed using dose optimization techniques as appropriate, variously including the following: *Automated exposure control *Adjustment of mA and/or kV according to patient size (this includes techniques or standardized protocols for targeted exams where dose is matched to indication/reason for exam; i.e. extremities or head) *Use of iterative reconstruction technique DLP: 949 mGy-cm FINDINGS: There is no acute intracranial hemorrhage. There is no evidence of acute/subacute cerebral or cerebellar infarction. There is no midline shift or mass effect. There is no significant white matter disease. No extra-axial fluid collection. The ventricles are normal in size. The orbits are symmetric and within normal limits. The mastoid air cells are well aerated. There is mild mucosal thickening along the posterior wall of the left maxillary sinus. CT/CT head/brain wo IV con IMPRESSION: No acute intracranial abnormality. Dictated By: Isaias Carranza Jr, DO Signed By: <Electronically signed by Isaias Carranza Jr, DO in OV> 03/19/241928 DD/ 12 TD/TT: Carton Repairer: JAMES Discharge Plan Discharge Clinical Impression: Bilateral shoulder pain, Paresthesias, Muscle spasm Patient Disposition: Home, Self-Care Instructions: Paresthesia (ED), Muscle Spasm (ED) Additional Instructions: Rest. Avoid strenuous activity. Warm compresses. Robaxin as directed for pain and muscle spasm. Decadron as directed. Follow-up with your primary care provider. Call this week to schedule a follow- up appointment. Return to the emergency department if you have any worsening of symptoms, or any concerns. Get well soon! Prescriptions: New methocarbamol 750 mg tablet 750 mg PO TID PRN (Reason: muscle spasm) Qty: 20 0RF dexamethasone 4 mg tablet 4 mg PO BID Qty: 10 0RF No Action albuterol 90 mcg/actuation aerosol inhalation diclofenac potassium 50 mg tablet 50 mg PO BID Qty: 10 0RF cetirizine 10 mg tablet 10 mg PO DAILY Stand Alone Forms: Work/School Release Print Language: Fijian
[2024-03-19 16:55] VITALS: BP 132/90; PULSE 78; RESP 18; TEMP 37.1; O2SAT 100; BMI 18.3
[2024-03-19 17:33] LABS: MANUAL DIFF FLAG NO
[2024-03-19 17:42] LABS: Basophils Absolute Auto 0.1 X10*3/uL (0.0-0.2); Basophils Percent Auto 0.8 % (0-2); Eosinophils Absolute Auto 0.1 X10*3/uL (0.0-0.4); Eosinophils Percent Auto 1.2 % (0-4); Hematocrit 41.1 % (37.0-47.0); Imm Gran Abs Auto 0.02 X10*3/uL (0.00-0.03); Imm Gran Pct Auto 0.3 % (0.0-0.4); Lymphocytes Absolute Auto 1.6 X10*3/uL (1.2-4.9); Lymphocytes Percent Auto 26.8 % (20-40); Mean Corpuscular HGB Conc 34.1 g/dl (31.0-35.0); Mean Corpuscular Hemoglobin 31.5 pg (27.0-33.0); Mean Corpuscular Volume 92.6 fL (80.0-98.0); Mean Platelet Volume 8.4 fL (9.4-12.3); Monocytes Absolute Auto 0.4 X10*3/uL (0.1-1.2); Monocytes Percent Auto 6.5 % (2-11); Neutrophils Absolute Auto 3.8 x10*3/uL (2.0-8.3); Neutrophils Percent Auto 64.4 % (45-73); Platelet Count 277 X10*3/uL (160-400); Red Blood Count 4.44 X10*6/uL (4.20-5.50); Red Cell Distribution Width 12.1 % (11.0-16.0)
[2024-03-19 18:00] VITALS: BP 107/71; PULSE 59; RESP 16; O2SAT 98
[2024-03-19 18:01] LABS: Alanine Aminotransferase 15 U/L (0-31); Albumin Level 4.7 g/dL (3.5-5.0); Alkaline Phosphatase 46 U/L (39-117); Anion Gap 11 (12-20); Aspartate Amino Transferase 17 U/L (5-31); Bilirubin Total 0.7 mg/dL (0.0-1.0); Blood Urea Nitrogen 12 mg/dL (9-16); Calcium 9.8 mg/dL (8.4-10.2); Carbon Dioxide 27 mmol/L (22-29); Chloride 107 mmol/L (96-108); Creatinine Clr Calc Pharmacy 73.1; Estimated Glomerular Filt Rate > 60; Glucose Random 93 mg/dL (60-115); Sodium 141 mmol/L (135-145); Total Protein 7.7 g/dL (6.5-8.0)
[2024-03-19 18:10] LABS: TSH reflex Free T4 1.99 uIU/mL (0.32-4.0)
--- NOTE | 2024-03-19 18:21 | PC.NURSE ---
urine obtained/sent to lab. pt waiting for CT to be completed at this time.
[2024-03-19 18:34] LABS: UPreg QC Valid YES; Urine Pregnancy NEGATIVE (NEGATIVE)
--- NOTE | 2024-03-19 18:45 | PC.NURSE ---
pt to CT at this time.
[2024-03-19] MEDS: methocarbamoL 750 MG TABLET PO (19:21)
[2024-03-19] MEDS: dexAMETHasone 4 MG TABLET 8 MG PO (19:21)
[2024-03-19 19:55] VITALS: BP 107/71; PULSE 59; RESP 16; TEMP 37.1; O2SAT 98
[2024-03-22 22:44] LABS: Lyme Abs Screen <0.90 index
[2024-03-22 23:19] LABS: A. Phagocytphilium DNA,RT-PCR NOT DETECTED (NOT DETECTED); Babesia Microti DNA, RT-PCR NOT DETECTED (NOT DETECTED); Borrelia Miyamotoi,DNA RT-PCR NOT DETECTED (NOT DETECTED); E.Chaffeensis DNA RT-PCR NOT DETECTED (NOT DETECTED); Lyme(Borrelia ssp)DNA RT-PCR NOT DETECTED (NOT DETECTED)
== END 2024-03-19 19:56 | disposition home or self-care (01) ==
PROVIDERS: Nurse Practitioner Family; Physician Assistant; Emergency Provider Emergency Medicine Emergency Medical Services; PCP Nurse Practitioner Family
DX: M25.512 Pain in left shoulder (principal); M25.511 Pain in right shoulder; R20.2 Paresthesia of skin; M62.838 Other muscle spasm
CPT/HCPCS: 36415; 70450; 72125; 80053; 81025; 82550; 84443; 85025; 86617; 86618; 87468; 87469; 87478; 87484; 87798; 99283; 99284; J8540

== ENCOUNTER 2024-03-26 11:41 | Outpatient (AMB) | payer BC, SELFPAY ==
--- NOTE | 2024-03-26 11:53 | AM.OFFWIN_ITS ---
Intake Vital Signs 03/26/24 11:54 Height 5 ft 1 in Weight 97 lb BMI 18.3 BP 98/58 L Blood Pressure Location Rt brachial Position Sitting Pulse 93 Pulse Source Pulse Oximeter Temp 98.4 F Temp Source Oral Pulse Oximetry (%) 99 Oxygen Delivery Method Room Air Intake Visit Reasons: EP swelling of the lymph nodes Intake Note: pt here c/o swollen lymph nodes/ pain multiple sites upper body Patient Tobacco Use Status: Never used Tobacco Allergies wheat Allergy (Verified 03/26/24 11:54) Gastrointestinal Upset Do you need a note to return to daycare/school/sports/work: No HPI HPI Comments History of Present Illness Details 24 y/o female patient who presents to [facility] in clinic with c/o generalized body aches. Describes feeling pain under armpits, lower chest and shoulder pains. Reports that symptoms started in the beginning of March. Pt was recently seen at ED for similar concerns, and was prescribed Muscle relaxants and Steroids. Pt reports not feeling any better. CT-Scan negative. Lyme testing, negative [facility] Surgical History Hx of eye surgery Social History Housing: Condominium Patient Tobacco Use Status: Never used Tobacco Current occupational status: employed Current occupational exposures/hazards: No Cognitive needs: No Hearing needs: No Vision needs: Yes Review of Systems Const All systems reviewed & are unremarkable except as noted in HPI and below Physical Exam Vital Signs: Last Vital Signs Temp 98.4 F 03/26/24 11:54 Pulse 93 03/26/24 11:54 BP 98/58 L 03/26/24 11:54 Pulse Ox 99 03/26/24 11:54 Oxygen Delivery Method Room Air 03/26/24 11:54 BMI result Body Mass Index 18.3 Const General: comfortable and no acute distress Nutritional Appearance: underweight Orientation/consciousness: patient oriented x3 Chest Chest palpation & inspection: normal inspection of the chest and tenderness pectoral muscle and costochondral junction Breast/axilla palpation: no axillary lymphadenopathy Resp Effort & Inspection: normal respiratory effort Auscultation: clear to auscultation bilaterally Cardio Heart sounds: S1 normal heart sound present and S2 normal heart sound present Neuro General: patient oriented x3, gait normal and moves all extremities Psych Speech and movement: Normal speech and movement present Assessment & Plan Assessment & Plan (1) Generalized body aches: Code(s): R52 - Pain, unspecified Plan: No clear etiology and no objective findings. F/U with PCP Acetaminophen for pain relief. Coding Level of Care Code Est Pt Level 3 (96109) Diagnoses Generalized body aches R52 Time Spent (min) 15
[2024-03-26 11:54] VITALS: BP 98/58; PULSE 93; TEMP 36.9; O2SAT 99; BMI 18.3
== END 2024-03-26 12:17 | disposition home or self-care (01) ==
PROVIDERS: PCP Nurse Practitioner Family; Visit Provider Nurse Practitioner Family
DX: R52 Pain, unspecified (principal)
CPT/HCPCS: 99213

== ENCOUNTER 2024-04-14 08:10 | Outpatient (AMB) | payer BC, SELFPAY ==
[2024-04-14 08:17] VITALS: BP 102/70; PULSE 80; O2SAT 99; BMI 18.6
--- NOTE | 2024-04-14 08:17 | A.OFFPC_ITS ---
Vital Signs 04/14/24 08:17 Height 5 ft 1 in Weight 98 lb 6 oz BMI 18.6 BP 102/70 Blood Pressure Location Rt brachial Position Sitting Pulse 80 Pulse Source Pulse Oximeter Pulse Oximetry (%) 99 Intake Visit Reasons: Follow up walk-in swollen lymph nodes Intake Note: pt is here for follow up regarding swollen lymph nodes. was recently seen at our walk in clinic. Registered Client Associate Required: No Accompanied by: Self / Same As Patient Allergies wheat Allergy (Verified 04/14/24 08:18) Gastrointestinal Upset Tobacco use date assessed: 04/14/24 Dental Screening Dental Screen Date: 01/28/24 HPI Follow up walk-in swollen lymph nodes HPI Details Pt was seen in the ER on 03/19 c/o bilat shoulder pain with numbness and tingling. Head and cervical spine CTs were negative. Pt was d/c with methocarbamol and dexamethasone. Pt was seen in the walk-in on 03/26 c/o ongoing body aches. There was no clear etiology for her symptoms. She reports ongoing numbness, body pains, and fatigue. Pt reported she has seen a neurologist in the past for this and workup was reportedly negative, MS was ruled out. Will order labs and refer to rheumatology. Denies fever, chills, and dizziness. [facility] Surgical History Hx of eye surgery Social History Housing: Condominium Patient Tobacco Use Status: Never used Tobacco e-Cigarette/Vaping Use: Never Used service: No Current occupational status: employed Current occupational exposures/hazards: No Cognitive needs: No Hearing needs: No Vision needs: Yes Questionnaire PHQ-9 Over the last 2 weeks, how often have you been bothered by any of the following problems? 1. Little interest or pleasure in doing things: not at all 2. Feeling down, depressed, or hopeless: not at all 3. Trouble falling or staying asleep, or sleeping too much: several days 4. Feeling tired or having little energy: nearly every day 5. Poor appetite or overeating: several days 6. Feeling bad about yourself - or that you are a failure or have let yourself or your family down: not at all 7. Trouble concentrating on things, such as reading the newspaper or watching television: not at all 8. Moving or speaking so slowly that other people could have noticed. Or the opposite - being so fidgety or restless that you have been moving around a lot more than usual: not at all 9. Thoughts that you would be better off or of hurting yourself in some way: not at all Total score: 5 Depression Screening Interpretation: Negative Depression Screening Done: Yes 98143 - PHQ-9 Billing: Yes Source: Developed by Drs. Girish Rendon, Dominique Danielson, Anthony Martinez and colleagues, with an educational tabitha from [employer]. Thrive Questionnaire Date Thrive assessed: 04/14/24 I am a: Patient What is your living situation today?: I have a steady place to live Within the past 12 months, did the food you bought not last and you didn't have the money to get more?: I choose not to answer this question Within the past 12 months, did you worry whether your food would run out before you got money to buy more?: I choose not to answer this question Do you have trouble paying for medicines?: I choose not to answer this question Do you have trouble getting transportation to medical appointments?: I choose not to answer this question Do you have trouble paying your heating and electricity bill?: I choose not to answer this question Do you have trouble taking care of your child, family member or friend?: I choose not to answer this question Do you have trouble with day-to-day activities such as bathing, preparing meals, shopping, managing finances, etc.?: I choose not to answer this question Are you currently unemployed and looking for a job?: I choose not to answer this question Are you interested in more education?: I choose not to answer this question Please select the resources that you would like help with: Housing/Longterm Currently or been in a relationship where the following occur: No concerns reported THRIVE Score: 0 AUDIT C Alcohol Use Questionnaire (AUDIT-C) 1. How often do you have a drink containing alcohol?: Monthly or less 2. How many drinks containing alcohol do you have on a typical day when you are drinking?: 1 or 2 3. How often do you have six or more drinks on one occasion?: Never Total Score: 1 Score Reviewed/Action Taken: Yes WADE-7 AMB Questionnaire WADE-7 Date WADE - 7 assessed: 04/14/24 Feeling nervous, anxious, or on edge: 1 = Several days Not being able to stop or control worryin = Not at all Worrying too much about different things: 0 = Not at all Trouble relaxin = More than half the days Being so restless that it is hard to sit still: 0 = Not at all Becoming easily annoyed or irritable: 0 = Not at all Feeling afraid as if something awful might happen: 0 = Not at all Total WADE-7 score (0-4 normal; 5-9 mild; 10-14 moderate; 15-21 severe): 3 Source: Developed by Drs. Girish Rendon, Dominique Danielson, Anthony Martinez and colleagues, with an educational tabitha from [employer]. WADE-7 Assessment Billing WADE-7 Assessment Tool: WADE-7 Assessment 32199 Review of Systems Const Reports as per HPI Physical exam (Primary Care) Vital Signs: Last Vital Signs Pulse 80 04/14/24 08:17 BP 102/70 04/14/24 08:17 Pulse Ox 99 04/14/24 08:17 BMI result Body Mass Index 18.6 Tobacco/Smoking Status: Tobacco use Status Tobacco use date assessed 04/14/24 04/14/24 08:22 Patient Tobacco Use Status Never used Tobacco 04/14/24 08:17 e-Cigarette/Vaping Use Never Used 04/14/24 08:22 PHQ-9: PHQ-9 Score PHQ-9: Total score 5 04/14/24 08:56 Depression Screening Interpretation: Negative Thrive Assessment: Date of Thrive Assessment Date Thrive assessed 04/14/24 04/14/24 08:22 Currently or been in a relationship where the following occur: No concerns reported Const General: cooperative Orientation/consciousness: patient oriented x3 Resp Effort & Inspection: normal respiratory effort Auscultation: clear to auscultation bilaterally Cardio Rate: regular rate Rhythm: regular rhythm Heart sounds: S1 normal heart sound present and S2 normal heart sound present Neuro Other: + patellar reflexes, + tricep reflexes, finger to thumb intact, arm pull test negative, - romberg, heel to reeves intact General: patient oriented x3 Cranial nerves: Yes CN's II-XII intact bilaterally Psych Appearance: grossly normal Mental Status: mental status grossly normal Speech and movement: Normal speech and movement present Affect: normal affect Attitude: cooperative Thought process: Normal thought process present Thought content: Normal thought content present Insight: Good insight present (Psych) Judgement: Good judgement present (Psych) Assessment and Plan Assessment & Plan (1) Numbness and tingling: Code(s): R20.0 - Anesthesia of skin; R20.2 - Paresthesia of skin Plan: labs (2) Whole body pain: Code(s): R52 - Pain, unspecified Plan: labs and referral to rheum (3) Fatigue: Code(s): R53.83 - Other fatigue Plan: labs and rheum Plan The patient agreed to the use of a medical biller for this encounter. Scribed for ANGELIKA Geller by Olesya Dejesus medical biller, on 04/14/2024 at 08:55 EST. Orders: Orders Tick-borne Disease Molecular Today R20.0 - Anesthesia of skin, R20.2 - Paresthesia of skin, R52 - Pain, unspecified, R53.83 - Other fatigue Vitamin B12 and Folate Today R20.0 - Anesthesia of skin, R20.2 - Paresthesia of skin, R52 - Pain, unspecified, R53.83 - Other fatigue Erythrocyte Sedimentation Rate Today R20.0 - Anesthesia of skin, R20.2 - Paresthesia of skin, R52 - Pain, unspecified, R53.83 - Other fatigue C Reactive Protein Today R20.0 - Anesthesia of skin, R20.2 - Paresthesia of skin, R52 - Pain, unspecified, R53.83 - Other fatigue DNA Double Stranded-Crithidia Today R20.0 - Anesthesia of skin, R20.2 - Paresthesia of skin, R52 - Pain, unspecified, R53.83 - Other fatigue Complete Blood Count Auto Diff Today R20.0 - Anesthesia of skin, R20.2 - Paresthesia of skin, R52 - Pain, unspecified, R53.83 - Other fatigue Comprehensive Met. Panel Today R20.0 - Anesthesia of skin, R20.2 - Paresthesia of skin, R52 - Pain, unspecified, R53.83 - Other fatigue Lyme IgG/IgM w/reflex to WB Today R20.0 - Anesthesia of skin, R20.2 - Paresthe allison of skin, R52 - Pain, unspecified, R53.83 - Other fatigue Syphilis Screen Today R20.0 - Anesthesia of skin, R20.2 - Paresthesia of skin, R52 - Pain, unspecified, R53.83 - Other fatigue HARITHA Reflex Titer and Pattern Today R20.0 - Anesthesia of skin, R20.2 - Paresthesia of skin, R52 - Pain, unspecified, R53.83 - Other fatigue Sjogren's Antibodies Today R20.0 - Anesthesia of skin, R20.2 - Paresthesia of skin, R52 - Pain, unspecified, R53.83 - Other fatigue Vitamin B6 Today R20.0 - Anesthesia of skin, R20.2 - Paresthesia of skin, R52 - Pain, unspecified, R53.83 - Other fatigue Rheumatoid Factor Today R20.0 - Anesthesia of skin, R20.2 - Paresthesia of skin, R52 - Pain, unspecified, R53.83 - Other fatigue Anti DNA DS Antibody Today R20.0 - Anesthesia of skin, R20.2 - Paresthesia of skin, R52 - Pain, unspecified, R53.83 - Other fatigue Hemoglobin Electrophoresis Today R20.0 - Anesthesia of skin, R20.2 - Paresthesia of skin, R52 - Pain, unspecified, R53.83 - Other fatigue Referrals Rheumatology Referral R20.0 - Anesthesia of skin, R20.2 - Paresthesia of skin, R52 - Pain, unspecified, R53.83 - Other fatigue Coding Level of Care Code Est Pt Level 3 (02888) Diagnoses Numbness and tingling R20.0; R20.2 Whole body pain R52 Fatigue R53.83 Additional Codes WADE-7 Assessment Billing - WADE-7 Assessment Tool: WADE-7 Assessment 13151 ([id number])
== END 2024-04-14 09:28 | disposition home or self-care (01) ==
PROVIDERS: PCP Nurse Practitioner Family; Visit Provider Nurse Practitioner Family
DX: R20.0 Anesthesia of skin (principal); R20.2 Paresthesia of skin; R52 Pain, unspecified; R53.83 Other fatigue
CPT/HCPCS: 99213

== ENCOUNTER 2024-04-14 09:04 | Outpatient (REF) | payer BC, SELFPAY ==
[2024-04-14 10:14] LABS: MANUAL DIFF FLAG NO
[2024-04-14 10:22] LABS: Eosinophils Absolute Auto 0.1 X10*3/uL (0.0-0.4); Eosinophils Percent Auto 1.8 % (0-4); Hematocrit 42.6 % (37.0-47.0); Hemoglobin 14.3 g/dl (12.0-16.0); Imm Gran Abs Auto 0.02 X10*3/uL (0.00-0.03); Imm Gran Pct Auto 0.5 % (0.0-0.4); Lymphocytes Percent Auto 25.8 % (20-40); Mean Corpuscular HGB Conc 33.6 g/dl (31.0-35.0); Mean Corpuscular Volume 92.2 fL (80.0-98.0); Mean Platelet Volume 8.8 fL (9.4-12.3); Monocytes Absolute Auto 0.2 X10*3/uL (0.1-1.2); Monocytes Percent Auto 5.5 % (2-11); Neutrophils Absolute Auto 2.5 x10*3/uL (2.0-8.3); Neutrophils Percent Auto 65.4 % (45-73); Platelet Count 272 X10*3/uL (160-400); Red Blood Count 4.62 X10*6/uL (4.20-5.50); Red Cell Distribution Width 12.1 % (11.0-16.0); White Blood Count 3.8 X10*3/uL (4.8-10.8)
[2024-04-14 10:58] LABS: Erythrocyte Sedimentation Rate 3 MM/HR (0-20)
[2024-04-14 11:00] LABS: Alanine Aminotransferase 15 U/L (0-31); Albumin Level 4.7 g/dL (3.5-5.0); Alkaline Phosphatase 47 U/L (39-117); Anion Gap 12 (12-20); Aspartate Amino Transferase 17 U/L (5-31); Bilirubin Total 0.7 mg/dL (0.0-1.0); Blood Urea Nitrogen 6 mg/dL (9-16); C Reactive Protein < 0.04 mg/dL (< or = 0.50); Calcium 9.9 mg/dL (8.4-10.2); Carbon Dioxide 25 mmol/L (22-29); Chloride 107 mmol/L (96-108); Estimated Glomerular Filt Rate > 60; Glucose Random 104 mg/dL (60-115); Potassium 3.4 mmol/L (3.3-5.1); Sodium 141 mmol/L (135-145); Total Protein 7.6 g/dL (6.5-8.0)
[2024-04-14 11:09] LABS: Rheumatoid Factor < 13.0 IU/mL (<15.0)
[2024-04-14 11:11] LABS: Syphilis Screen Nonreactive (Nonreactive)
[2024-04-14 11:27] LABS: Folate 8.7 ng/mL (> or = 4.0); Vitamin B12 629 pg/mL (200-900)
[2024-04-15 12:14] LABS: Lyme Abs Screen <0.90 index
[2024-04-15 15:29] LABS: Hemoglobin 14.6 g/dL (11.7-15.5); MCH 31.7 pg (27.0-33.0); MCV 93.3 fL (80.0-100.0); RBC 4.61 Million/uL (3.80-5.10); RDW 12.2 % (11.0-15.0)
[2024-04-15 20:48] LABS: Anti DNA DS Antibody <1 IU/mL; Antibody to SS-A Antigen <1.0 NEG AI (<1.0 NEG); Antibody to SS-B Antigen <1.0 NEG AI (<1.0 NEG)
[2024-04-15 22:18] LABS: A. Phagocytphilium DNA,RT-PCR NOT DETECTED (NOT DETECTED); Babesia Microti DNA, RT-PCR NOT DETECTED (NOT DETECTED); Borrelia Miyamotoi,DNA RT-PCR NOT DETECTED (NOT DETECTED); E.Chaffeensis DNA RT-PCR NOT DETECTED (NOT DETECTED); Lyme(Borrelia ssp)DNA RT-PCR NOT DETECTED (NOT DETECTED)
[2024-04-19 10:39] LABS: Anti Nuclear Antibody Screen NEGATIVE (NEGATIVE)
[2024-04-20 15:37] LABS: Vitamin B6 23.7 ng/mL (2.1-21.7)
[2024-04-25 16:13] LABS: DNAds, Crithidia Antibody Negative (Negative)
== END 2024-04-14 09:05 | disposition home or self-care (01) ==
LOC: HO.HMGCLDS 09:04
PROVIDERS: PCP Nurse Practitioner Family; Visit Provider Nurse Practitioner Family
DX: R53.83 Other fatigue (principal); R52 Pain, unspecified; R20.0 Anesthesia of skin; R20.2 Paresthesia of skin
CPT/HCPCS: 36415; 80053; 82607; 82746; 83020; 84207; 85014; 85018; 85025; 85041; 85652; 86038; 86140; 86225; 86235; 86255; 86431; 86617; 86618; 86780; 87468; 87469; 87478; 87484; 87798

== ENCOUNTER 2024-08-30 08:11 | Outpatient (AMB) | payer BC, SELFPAY ==
--- NOTE | 2024-08-30 09:07 | AM.OFFWIN_ITS ---
Intake Vital Signs 08/30/24 09:09 Weight 105 lb BP 108/72 Blood Pressure Location Lt brachial Position Sitting Pulse 60 Pulse Source Pulse Oximeter Pulse Oximetry (%) 98 Oxygen Delivery Method Room Air Intake Visit Reasons: EP-rt eye swollen Intake Note: Patient here for right eye swelling, slight itching that she noticed this morning Patient Tobacco Use Status: Never used Tobacco Allergies wheat Allergy (Verified 08/30/24 09:10) Gastrointestinal Upset Do you need a note to return to daycare/school/sports/work: Yes HPI EP-rt eye swollen HPI Details This note is constructed using voice recognition software. While every effort has been made to ensure accuracy, electronic integrated systems mechanic errors may have been included. The patient is a 24 year old female who presents to the clinic today with right upper eyelid swelling with some light itch since this morning. She notes that she has had a surgery in the past to the tear duct of that eye as it was significantly blocked, and she had plugs put in so that it will not block the same way. This was a surgery that occurred back in 2019. She denies any discharge from the eye, any difficulty with vision. She wears glasses.. [facility] Medical History (Updated 05/20/24 @ 17:53 by DIANNA Krishnamurthy-SIGIFREDO) Fibromyalgia Surgical History Hx of eye surgery Social History Housing: Condominium Patient Tobacco Use Status: Never used Tobacco e-Cigarette/Vaping Use: Never Used service: No Current occupational status: employed Current occupational exposures/hazards: No Cognitive needs: No Hearing needs: No Vision needs: Yes Review of Systems Const All systems reviewed & are unremarkable except as noted in HPI and below Physical Exam Vital Signs: Last Vital Signs Pulse 60 08/30/24 09:09 BP 108/72 08/30/24 09:09 Pulse Ox 98 08/30/24 09:09 Oxygen Delivery Method Room Air 08/30/24 09:09 Const General: cooperative, healthy appearing, comfortable, no acute distress and well developed Orientation/consciousness: patient oriented x3 Limitations: no limitations Eyes Other: Right upper eyelid hordeolum present. Alignment and Position: alignment normal Conjunctivae: conjunctivae normal Sclerae: sclerae normal Corneas: corneas normal Pupils: Equal, round and reactive pupils present EOM: EOMs intact bilaterally Resp Effort & Inspection: normal respiratory effort and able to speak in complete sentences Neuro General: patient oriented x3 Cranial nerves: Yes Equal, round and reactive pupils present Assessment & Plan Assessment & Plan (1) Hordeolum: Code(s): H00.019 - Hordeolum externum unspecified eye, unspecified eyelid Qualifiers: Hordeolum type: externum Laterality: right Eyelid: upper Qualified Code(s): H00.011 - Hordeolum externum right upper eyelid Plan: Advised warm compresses at least 4 times per day for symptomatic management. Erythromycin ointment sent for supportive measures and comfort. Advised patient to follow up as needed with worsening or failure to resolve. Plan See above for full details and plan. Medications: New erythromycin 0.5 inches ophthalmic (eye) TID 7 days 3.5 grams 0RF Coding Level of Care Code Est Pt Level 3 (00986) Diagnoses Hordeolum externum of right upper eyelid H00.011 Hordeolum type: externum Laterality: right Eyelid: upper
[2024-08-30 09:09] VITALS: BP 108/72; PULSE 60; O2SAT 98
== END 2024-08-30 09:53 | disposition home or self-care (01) ==
PROVIDERS: PCP Nurse Practitioner Family; Visit Provider Registered Nurse
DX: H00.011 Hordeolum externum right upper eyelid (principal)

== ENCOUNTER 2024-10-07 10:04 | Outpatient (AMB) | payer BC, SELFPAY ==
[2024-10-07 10:06] VITALS: BP 104/62; PULSE 73; O2SAT 99; BMI 19.7
--- NOTE | 2024-10-07 10:06 | A.OFFPC_ITS ---
Vital Signs 10/07/24 10:06 Height 5 ft 1 in Weight 104 lb 4 oz BMI 19.7 BP 104/62 Blood Pressure Location Rt brachial Position Sitting Pulse 73 Pulse Source Pulse Oximeter Pulse Oximetry (%) 99 Oxygen Delivery Method Room Air Intake Visit Reasons: Fibromyalgia Intake Note: Pt is here today for [facility] and was diagnosed with fibromyalgia. Allergies wheat Allergy (Verified 10/07/24 10:06) Gastrointestinal Upset Medication List - Last Reconciled 10/07/24 by ANGELIKA Krishnamurthy No Known Home Meds Tobacco use date assessed: 10/07/24 Dental Screening Dental Screen Date: 10/07/24 Did you have a dental problem in the last 6 months where you did not have access to dental care?: No HPI Fibromyalgia HPI Details Chief Complaint Significant discomfort, especially at night and in the morning. History of Present Illness The patient is a 24-year-old female presenting with fibromyalgia. Recently, she consulted with a nuclear equipment operator who confirmed the diagnosis of fibromyalgia. The patient describes experiencing significant discomfort, particularly during the night and the morning. The pain predominantly affects her bilateral shoulders and elbow joints, which she reports feeling swollen. Additionally, she occasionally experiences discomfort in the axillary regions, although without any signs of lymphadenopathy or lipomas. There is no reported history of active joint swelling or redness. Previous treatment approaches have not been detailed, and she is here to establish a treatment regimen. Social History Health Maintenance Review of Systems - Musculoskeletal: Reports discomfort in bilateral shoulders and elbow joints, and feelings of swelling. - General: Reports discomfort predominan tly at night and in the morning. Physical Exam General: Cooperative, healthy appearing, comfortable, no acute distress and well developed Orientation: Patient oriented x3 Limitations: No limitations Head: Normal to inspection Ears: Hearing grossly normal bilaterally Nose: Normal external nose present Face and sinus: Normal facial exam Eyes: Appearance normal, both eyes and all related structures Neck: Normal visual inspection and Yes full ROM Respiratory: Normal respiratory effort and able to speak in complete sentences. Clear to auscultation bilaterally Cardiovascular: Regular rate and rhythm. Normal S1 and S2 GI: Normal to inspection. Soft to palpation and nontender Skin: No rashes or lesions noted Neuro: Patient oriented x3 Extremities: Normal to inspection, Results Plan - Initiate treatment with Cymbalta 30 mg daily for fibromyalgia symptom management. - The patient is advised to use the port al for communication regarding the medication's efficacy and dosage adjustment if needed. Discussion Notes I discussed with the patient the diagnosis of fibromyalgia and the plan to initiate treatment with Cymbalta at a starting dose of 30 mg daily. We talked about the possible advantages of managing her symptoms with this medication, including the reduction of discomfort. I explained that it might take some time?potentially a few months?before we notice significant improvements. The patient was informed to communicate via the portal to update me on her progress or if adjustments are required. We also discussed the possibility of exploring alternative treatments if the current medication does not provide sufficient relief. Patient Instructions - Start taking Cymbalta ER 30 mg once da kyleigh. - Use the patient portal to report how t he medication is working. - Notify me promptly if there is a need to adjust the dosage or if there are any concerns. [facility], [facility] Medical History (Updated 10/07/24 @ 10:45 by ANGELIKA Krishnamurthy) Fibromyalgia Surgical History Hx of eye surgery Social History Housing: Condominium Patient Tobacco Use Status: Never used Tobacco e-Cigarette/Vaping Use: Never Used service: No Current occupational status: employed Current occupational exposures/hazards: No Cognitive needs: No Hearing needs: No Vision needs: Yes Questionnaire PHQ-9 Over the last 2 weeks, how often have you been bothered by any of the following problems? 1. Little interest or pleasure in doing things: more than half the days 2. Feeling down, depressed, or hopeless: several days 3. Trouble falling or staying asleep, or sleeping too much: nearly every day 4. Feeling tired or having little energy: nearly every day 5. Poor appetite or overeating: several days 6. Feeling bad about yourself - or that you are a failure or have let yourself or your family down: not at all 7. Trouble concentrating on things, such as reading the newspaper or watching television: not at all 8. Moving or speaking so slowly that other people could have noticed. Or the opposite - being so fidgety or restless that you have been moving around a lot more than usual: not at all 9. Thoughts that you would be better off or of hurting yourself in some way: not at all Total score: 10 Depression Screening Interpretation: Positive (denies any si or hi) Depression Screening Follow-up: Existing condition and Declines treatment Depression Screening Done: Yes 40707 - PHQ-9 Billing: Yes Source: Developed by Drs. Girish Rendon, Dominique Danielson, Anthony Martinez and colleagues, with an educational tabitha from [employer]. Thrive Questionnaire Date Thrive assessed: 10/07/24 I am a: Patient What is your living situation today?: I have a steady place to live Within the past 12 months, did the food you bought not last and you didn't have the money to get more?: Never true Within the past 12 months, did you worry whether your food would run out before you got money to buy more?: Never true Do you have trouble paying for medicines?: No Do you have trouble getting transportation to medical appointments?: No Do you have trouble paying your heating and electricity bill?: No Do you have trouble taking care of your child, family member or friend?: No Do you have trouble with day-to-day activities such as bathing, preparing meals, shopping, managing finances, etc.?: I choose not to answer this question Are you currently unemployed and looking for a job?: No Are you interested in more education?: No Please select the resources that you would like help with: None Currently or been in a relationship where the following occur: No concerns reported THRIVE Score: 0 AUDIT C Alcohol Use Questionnaire (AUDIT-C) 1. How often do you have a drink containing alcohol?: Monthly or less 2. How many drinks containing alcohol do you have on a typical day when you are drinking?: 1 or 2 3. How often do you have six or more drinks on one occasion?: Never Total Score: 1 Score Reviewed/Action Taken: Yes WADE-7 AMB Questionnaire WADE-7 Date WADE - 7 assessed: 10/07/24 Feeling nervous, anxious, or on edge: 0 = Not at all Not being able to stop or control worryin = Not at all Worrying too much about different things: 0 = Not at all Trouble relaxin = Not at all Being so restless that it is hard to sit still: 0 = Not at all Becoming easily annoyed or irritable: 0 = Not at all Feeling afraid as if something awful might happen: 0 = Not at all Total WADE-7 score (0-4 normal; 5-9 mild; 10-14 moderate; 15-21 severe): 0 Source: Developed by Drs. Girish Rendon, Dominique Danielson, Anthony Martinez and colleagues, with an educational tabitha from [employer]. WADE-7 Assessment Billing WADE-7 Assessment Tool: WADE-7 Assessment 88928 Physical exam (Primary Care) Vital Signs: Last Vital Signs Pulse 73 10/07/24 10:06 BP 104/62 10/07/24 10:06 Pulse Ox 99 10/07/24 10:06 Oxygen Delivery Method Room Air 10/07/24 10:06 BMI result Body Mass Index 19.7 Tobacco/Smoking Status: Tobacco use Status Tobacco use date assessed 10/07/24 10/07/24 10:09 Patient Tobacco Use Status Never used Tobacco 10/07/24 10:09 e-Cigarette/Vaping Use Never Used 10/07/24 10:09 PHQ-9: PHQ-9 Score PHQ-9: Total score 10 10/07/24 10:45 Depression Screening Interpretation: Positive (denies any si or hi) Depression Screening Follow-up: Existing condition and Declines treatment Thrive Assessment: Date of Thrive Assessment Date Thrive assessed 10/07/24 10/07/24 10:09 Currently or been in a relationship where the following occur: No concerns reported Coding Level of Care Code Est Pt Level 3 (54743) Diagnoses Fibromyalgia M79.7 Additional Codes WADE-7 Assessment Billing - WADE-7 Assessment Tool: WADE-7 Assessment 15818 ([id number]) PHQ-9 - 09715 - PHQ-9 Billing: Yes ([id number]) Assessment & Plan Assessment & Plan (1) Fibromyalgia: Code(s): M79.7 - Fibromyalgia Category: Medical Plan . Orders: Orders Complete Blood Count Auto Diff Today M79.7 - Fibromyalgia Comprehensive Met. Panel Today M79.7 - Fibromyalgia Medications: New duloxetine (Cymbalta) 30 mg PO DAILY 30 caps 2RF
--- OUTSIDE RECORDS SUMMARY | 2024-10-07 13:15 | XMS_ITS | Encounter Summary ---
Author Organization [facility] Address [address] [place] [address] Care Team Providers Care Institutional Aide Name Role Phone Marci Barth MD Primary Care Provider Rylee Ocampo MD Primary Care Provider [phone] Encounter Details Date Type Department Care Team Description 12/13/2019 Orders Only Medical Records [address] [place] [id number] Jose C Alberto MD Social History Tobacco Use Types Packs/Day Years Used Date Smoking Tobacco: Never Smokeless Tobacco: Never Alcohol Use Standard Drinks/Week Comments No 0 (1 standard drink = 0.6 oz pur e alcohol) Sex Assigned at Date Recorded Not on file Job Start Date Occupation Industry Not on file Not on file Not on file documented as of this encounter Plan of Treatment Not on file documented as of this encounter Procedures Procedure Name Priority Date/Time Associated Diagnosis Comments OUTSIDE IMAGING Routine 11/22/2019 documented in this encounter Results * OUTSIDE IMAGING (11/22/2019) Jose C Alberto MD RADIOLOGY documented in this encounter Visit Diagnoses Not on filedocumented in this encounter Care Teams Institutional Aide Relationship Specialty Start Date End Date Marci Barth MD PCP - General 01/24/09 11/06/20 Rylee Malave MD [address] [place] [address] [id number] PCP - General Internal Medicine 11/07/20 documented as of this encounter
--- OUTSIDE RECORDS SUMMARY | 2024-10-07 13:15 | XMS_ITS | Encounter Summary ---
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
--- OUTSIDE RECORDS SUMMARY | 2024-10-07 13:15 | XMS_ITS | Encounter Summary ---
Author Organization [facility] Address [address] [place] [address] Care Team Providers Care Dry Primer Powder Blender Name Role Phone Marci Barth MD Primary Care Provider Rylee Ocampo MD Primary Care Provider [phone] Encounter Details Date Type Department Care Team Description 03/21/2016 Slack Cooper Report Medical Records [address] [place] [id number] Giovani Stock Social History Tobacco Use Types Packs/Day Years Used Date Smoking Tobacco: Never Smokeless Tobacco: Never Comments:dad smokes outside Alcohol Use Standard Drinks/Week Comments No 0 [...] on filedocumented in this encounter Care Teams Dry Primer Powder Blender Relationship Specialty Start Date End Date Marci Barth MD PCP - General 01/24/09 11/06/20 Rylee Malave MD [address] [place] [address] PCP - General Internal Medicine 11/07/20 documented as of this encounter
--- OUTSIDE RECORDS SUMMARY | 2024-10-07 13:15 | XMS_ITS | Encounter Summary ---
Author Organization [facility] Address [address] [place] [address] Care Team Providers Care Food And Beverage Attendant Name Role Phone Marci Barth MD Primary Care Provider Rylee Ocampo MD Primary Care Provider [phone] Encounter Details Date Type Department Care Team Description 03/15/2015 Hotel Dining Room Cashier Report Medical Records [address] [place] [address] Giovani Stock Social History Tobacco Use Types [...] on filedocumented in this encounter Care Teams Food And Beverage Attendant Relationship Specialty Start Date End Date Marci Barth MD PCP - General 01/24/09 11/06/20 Rylee Malave MD [address] [place] [address] PCP - General Internal Medicine 11/07/20 documented as of this encounter
--- OUTSIDE RECORDS SUMMARY | 2024-10-07 13:15 | XMS_ITS | Encounter Summary ---
Author Organization [facility] Address [address] [place] [address] Care Team Providers Care Optical Laboratory Manager Name Role Phone Marci Barth MD Primary Care Provider Rylee Ocampo MD Primary Care Provider [phone] Reason for Visit * Reason Onset Date Comments other 01/13/2020 Encounter Details Date Type Department Care Team Description 01/13/2020 Telephone Gastroenterology - [address] [place] [id number] Jose C Alberto MD other Social History Tobacco Use Types Packs/Day Years Used Date Smoking Tobacco: Never Smokeless Tobacco: Never Alcohol Use Standard Drinks/Week Comments No 0 (1 standard drink = 0.6 oz pur e alcohol) Sex Assigned at Date Recorded Not on file Job Start Date Occupation Industry Not on file Not on file Not on file documented as of this encounter Miscellaneous Notes * Telephone Encounter - Jasmyn Helm - 01/13/2020 1:10 PM EDT Patient its calling she change her diet for gluten free and have no constipation documented in this encounter Plan of Treatment Not on file documented as of this encounter Visit Diagnoses Not on filedocumented in this encounter Care Teams Optical Laboratory Manager Relationship Specialty Start Date End Date Marci Barth MD PCP - General 01/24/09 11/06/20 Rylee Malave MD [address] [place] [address] [phone] PCP - General Internal Medicine 11/07/20 documented as of this encounter
--- OUTSIDE RECORDS SUMMARY | 2024-10-07 13:15 | XMS_ITS | Encounter Summary ---
Author Organization [facility] Address [address] [place] [address] Care Team Providers Care Field Auditor Name Role Phone Marci Barth MD Primary Care Provider Rylee Ocampo MD Primary Care Provider [phone] Encounter Details Date Type Department Care Team Description 07/05/2011 Eye Slot Router Report Medical Records [address] [place] [address] Miranda Parsons Social History Tobacco Use Types Packs/Day Years Used Date Smoking Tobacco: Never Smokeless Tobacco: Never Comments:dad smokes outside Alcohol Use Standard Drinks/Week Comments Not Asked 0 (1 standard drink = 0.6 oz pur e alcohol) Sex Assigned at Date Recorded Not on file Job Start Date Occupation Industry Not on file Not on file Not on file documented as of this encounter Plan of Treatment Not on file documented as of this encounter Visit Diagnoses Not on filedocumented in this encounter Care Teams Field Auditor Relationship Specialty Start Date End Date Marci Barth MD PCP - General 01/24/09 11/06/20 Rylee Malave MD [address] [place] [address] PCP - General Internal Medicine 11/07/20 documented as of this encounter
--- OUTSIDE RECORDS SUMMARY | 2024-10-07 13:15 | XMS_ITS | Encounter Summary ---
Author Organization [facility] Address [address] [place] [address] Care Team Providers Care Nutrition Club Ambassador Name Role Phone Marci Barth MD Primary Care Provider Chuck Rylee Najera MD Primary Care Provider [phone] Encounter Details Date Type Department Care Team Description 11/22/2019 Hospital Medical Records [address] [place] [address] Social History Tobacco Use Types Packs/Day Years [...] on filedocumented in this encounter Care Teams Nutrition Club Ambassador Relationship Specialty Start Date End Date Marci Barth MD PCP - General 01/24/09 11/06/20 Rylee Malave MD [address] [place] [address] [phone] PCP - General Internal Medicine 11/07/20 documented as of this encounter
--- OUTSIDE RECORDS SUMMARY | 2024-10-07 13:15 | XMS_ITS | Encounter Summary ---
Author Organization [facility] Address [address] [place] [address] Care Team Providers Care Diesel Tractor Operator Name Role Phone Marci Barth MD Primary Care Provider Rylee Ocampo MD Primary Care Provider [phone] Encounter Details Date Type Department Care Team Description 03/27/2012 Tool Repairer Report Medical Records [address] [place] [address] Giovani Stock Social History Tobacco Use Types [...] on filedocumented in this encounter Care Teams Diesel Tractor Operator Relationship Specialty Start Date End Date Marci Barth MD PCP - General 01/24/09 11/06/20 Rylee Malave MD [address] [place] [address] PCP - General Internal Medicine 11/07/20 documented as of this encounter
--- OUTSIDE RECORDS SUMMARY | 2024-10-07 13:15 | XMS_ITS | Encounter Summary ---
Author Organization [facility] Address [address] [place] [address] Care Team Providers Care Delivery Engineer Name Role Phone Marci Barth MD Primary Care Provider Rylee Ocampo MD Primary Care Provider [phone] Encounter Details Date Type Department Care Team Description 07/05/2020 Hospital Medical Records [address] [place], [place] [id number] Adán Joshi MD [address] [place] [address] [phone] Social History Tobacco Use Types Packs/Day Years Used Date Smoking Tobacco: Never Smokeless Tobacco: Never Alcohol Use Standard Drinks/Week Comments No 0 (1 standard drink = 0.6 oz pur e alcohol) Sex Assigned at Date Recorded Not on file Job Start Date Occupation Industry Not on file Not on file Not on file COVID-19 Exposure Response Date Recorded In the last month, have you been in contact with someone who was confirmed or suspected to have Coronavirus / COVID-19? No / Unsure 06/20/2020 8:31 AM EDT documented as of this encounter Plan of Treatment Not on file documented as of this encounter Visit Diagnoses Not on filedocumented in this encounter Care Teams Delivery Engineer Relationship Specialty Start Date End Date Marci Barth MD PCP - General 01/24/09 11/06/20 Rylee Malave MD [address] [place] [phone] PCP - General Internal Medicine 11/07/20 documented as of this encounter
--- OUTSIDE RECORDS SUMMARY | 2024-10-07 13:15 | XMS_ITS | Encounter Summary ---
Author Organization [facility] Address [address] [place] [address] Care Team Providers Care Metal Sorter Name Role Phone Marci Barth MD Primary Care Provider Rylee Ocampo MD Primary Care Provider Encounter Details Date Type Department Care Team Description 04/26/2010 Business Planner Report Medical Records [address] [place] [address] Giovani Stock Social History Tobacco Use Types Packs/Day Years Used Date Smoking Tobacco: Passive Smo ke Exposure - Never Smoker Comments:dad smokes outside Alcohol Use Standard Drinks/Week [...] on filedocumented in this encounter Care Teams Metal Sorter Relationship Specialty Start Date End Date Marci Barth MD PCP - General 01/24/09 11/06/20 Rylee Malave MD [address] [place], [place] [phone] PCP - General Internal Medicine 11/07/20 documented as of this encounter
--- OUTSIDE RECORDS SUMMARY | 2024-10-07 13:15 | XMS_ITS | Encounter Summary ---
Author Organization [employer] [facility] Address [address] [place] [address] Care Team Providers Care Set Up Mechanic Automatic Line Name Role Phone Marci Barth MD Primary Care Provider Rylee Ocampo MD Primary Care Provider [phone] Encounter Details Date Type Department Care Team Description 07/02/2013 Release of Information Medical Records [address] [place] [address] Abstract, Provider Social History Tobacco Use Types [...] on filedocumented in this encounter Care Teams Set Up Mechanic Automatic Line Relationship Specialty Start Date End Date Marci Barth MD PCP - General 01/24/09 11/06/20 Rylee Malave MD [address] [place] [address] PCP - General Internal Medicine 11/07/20 documented as of this encounter
--- OUTSIDE RECORDS SUMMARY | 2024-10-07 13:15 | XMS_ITS | Encounter Summary ---
[facility] Organization [facility] Address [address] [place] [address] Care Team Providers Care Communications Senior Associate Name Role Phone Marci Barth MD Primary Care Provider Rylee Ocampo MD Primary Care Provider [phone] Encounter Details Date Type Department Care Team Description 03/15/2014 Book Shelver Report Medical Records [address] [place] [address] Giovani Stock Social History Tobacco Use Types [...] on filedocumented in this encounter Care Teams Communications Senior Associate Relationship Specialty Start Date End Date Marci Barth MD PCP - General 01/24/09 11/06/20 Rylee Malave MD [address] [place] [phone] PCP - General Internal Medicine 11/07/20 documented as of this encounter
--- OUTSIDE RECORDS SUMMARY | 2024-10-07 13:15 | XMS_ITS | Encounter Summary ---
Author Organization [facility] Address [address] [place] [address] Care Team Providers Care Cigarette Carton Sealer Name Role Phone Rylee Malave MD Primary Care Provider [phone] Reason for Visit * Reason Comments E-prescribe Rx Request Encounter Details Date Type Department Care Team Description 05/13/2022 Refill Pediatrics - [place] [address] [place] [address] Ritu Alfonso, WOOD TURNING LATHE OPERATOR [address] [place] [address] E-prescribe Rx Request Social History Tobacco Use Types Packs/Day Years [...] encounter Miscellaneous Notes * Telephone Encounter - Ilda Gar M.A. - 05/17/2022 10:40 AM EDT Lab Results Component Value Date NA 139 05/08/2020 K 3.8 05/08/2020 CO2 26 05/08/2020 CL 104 05/08/2020 BUN 9 05/08/2020 CREAT 0.74 05/08/2020 GLU 106 05/08/2020 CA 9.2 05/08/2020 GFR > 60 05/08/2020 Pending appt with Chloé Jules PAC 06/07/22 * Telephone Encounter - Anahiifeoma Mullen - 05/17/2022 8:02 AM EDT Patient would like script to be: E-PRESCRIBED/FAXED TO PHARMACY WHEN WAS THE PATIENT'S LAST APPOINTMENT IN ADULT MEDICINE? 07/06/21 WHEN WAS THE LAST TIME THE PATIENT SAW THEIR PCP? Same as above Does patient have an upcoming appointment? Yes 06/07/22 (THE MEDICATION REQUESTED IS ON THE MED LIST ABOVE) All of the medications requested were on the CURRENT MEDS list Did you check the Pharmacy information above?: YES Patient wants: 90 -day supply Is this a mail order prescription request ? NO If the refill is from a FAXED refill request what is the RX # listed on the fax? N/A Patients current insurance carrier is: Payor: [facility] FFS / Plan: [facility] / Product Type: MEDICAID RISK documented in this encounter Plan of Treatment Not on file documented as of this encounter Visit Diagnoses Diagnosis Middle ear effusion, bilateral Tinnitus aurium, right documented in this encounter Care Teams Cigarette Carton Sealer Relationship Specialty Start Date End Date Rylee Malave MD [address] [place] [address] PCP - General Internal Medicine 11/07/20 documented as of this encounter
--- OUTSIDE RECORDS SUMMARY | 2024-10-07 13:15 | XMS_ITS | Encounter Summary ---
Author Organization [facility] Address [address] [place] [address] Care Team Providers Care Tow Truck Dispatcher Name Role Phone Marci Barth MD Primary Care Provider Rylee Ocampo MD Primary Care Provider [phone] Encounter Details Date Type Department Care Team Description 12/03/2018 Supervisor Speech Report Medical Records [address] [place] [address] Griselda Rich MD Social History Tobacco Use Types Packs/Day [...] on filedocumented in this encounter Care Teams Tow Truck Dispatcher Relationship Specialty Start Date End Date Marci Barth MD PCP - General 01/24/09 11/06/20 Rylee Malave MD [address] [place] [id number] PCP - General Internal Medicine 11/07/20 documented as of this encounter
--- OUTSIDE RECORDS SUMMARY | 2024-10-07 13:15 | XMS_ITS | Encounter Summary ---
Author Organization [facility] Address [address] [place] [address] Care Team Providers Care Security Patrol Officer Name Role Phone Marci Barth MD Primary Care Provider Rylee Ocampo MD Primary Care Provider [phone] Encounter Details Date Type Department Care Team Description 11/09/2012 Director Export Report Medical Records [address] [place] [address] Giovani Stock Social History Tobacco Use Types [...] on filedocumented in this encounter Care Teams Security Patrol Officer Relationship Specialty Start Date End Date Marci Barth MD PCP - General 01/24/09 11/06/20 Rylee Malave MD [address] [place] [address] PCP - General Internal Medicine 11/07/20 documented as of this encounter
== END 2024-10-07 10:51 | disposition home or self-care (01) ==
PROVIDERS: PCP Nurse Practitioner Family; Visit Provider Nurse Practitioner Family
DX: M79.7 Fibromyalgia (principal)

== ENCOUNTER → 2024-10-07 10:04 | Outpatient (BNVA) | payer BC, SELFPAY | PROVIDERS: PCP Nurse Practitioner Family; Visit Provider Nurse Practitioner Family | DX: M79.7 Fibromyalgia (principal) | CPT/HCPCS: 96127 ==

== ENCOUNTER 2024-11-06 06:53 | Outpatient (REF) | payer BC, SELFPAY ==
[2024-11-06 11:46] LABS: MANUAL DIFF FLAG NO
[2024-11-06 11:58] LABS: Basophils Absolute Auto 0.1 X10*3/uL (0.0-0.2); Basophils Percent Auto 1.4 % (0-2); Eosinophils Absolute Auto 0.2 X10*3/uL (0.0-0.4); Hematocrit 42.8 % (37.0-47.0); Hemoglobin 13.9 g/dl (12.0-16.0); Imm Gran Abs Auto 0.01 X10*3/uL (0.00-0.03); Imm Gran Pct Auto 0.2 % (0.0-0.4); Lymphocytes Absolute Auto 1.7 X10*3/uL (1.2-4.9); Lymphocytes Percent Auto 34.8 % (20-40); Mean Corpuscular HGB Conc 32.5 g/dl (31.0-35.0); Mean Corpuscular Hemoglobin 30.1 pg (27.0-33.0); Mean Corpuscular Volume 92.6 fL (80.0-98.0); Mean Platelet Volume 8.9 fL (9.4-12.3); Monocytes Absolute Auto 0.4 X10*3/uL (0.1-1.2); Neutrophils Absolute Auto 2.6 x10*3/uL (2.0-8.3); Neutrophils Percent Auto 51.6 % (45-73); Platelet Count 305 X10*3/uL (160-400); Red Blood Count 4.62 X10*6/uL (4.20-5.50); Red Cell Distribution Width 12.2 % (11.0-16.0)
[2024-11-06 12:29] LABS: Alanine Aminotransferase 15 U/L (0-31); Albumin Level 4.3 g/dL (3.5-5.0); Alkaline Phosphatase 49 U/L (39-117); Anion Gap 10 (12-20); Aspartate Amino Transferase 25 U/L (5-31); Bilirubin Total 0.8 mg/dL (0.0-1.0); Blood Urea Nitrogen 8 mg/dL (9-16); Calcium 9.3 mg/dL (8.4-10.2); Carbon Dioxide 26 mmol/L (22-29); Chloride 108 mmol/L (96-108); Estimated Glomerular Filt Rate > 60; Glucose Random 83 mg/dL (60-115); Sodium 140 mmol/L (135-145); Total Protein 7.5 g/dL (6.5-8.0)
== END 2024-11-06 06:54 | disposition home or self-care (01) ==
LOC: HO.HMGCLDS 06:53
PROVIDERS: PCP Nurse Practitioner Family; Visit Provider Nurse Practitioner Family
DX: M79.7 Fibromyalgia (principal)
CPT/HCPCS: 36415; 80053; 85025

== ENCOUNTER 2024-12-01 15:11 | Outpatient (AMB) | payer BC, SELFPAY ==
[2024-12-01 15:18] VITALS: BP 124/80; PULSE 74; O2SAT 98; BMI 19.6
--- NOTE | 2024-12-01 15:18 | MHC.OFFWIV ---
Intake Vital Signs 12/01/24 15:18 Height 5 ft 1 in Weight 104 lb BMI 19.6 BP 124/80 Blood Pressure Location Lt brachial Position Sitting Pulse 74 Pulse Source Pulse Oximeter Pulse Oximetry (%) 98 Oxygen Delivery Method Room Air Intake Visit Reasons: EP-body ache, difficult to walk Intake Note: Patient here for bilat knee pain which started yesterday and today it has spread throughout her whole body. She was recently diagnosed with Fribromyalgia. Patient Tobacco Use Status: Never used Tobacco Allergies wheat Allergy (Verified 12/01/24 15:21) Gastrointestinal Upset Do you need a note to return to daycare/school/sports/work: Yes HPI HPI Comments History of Present Illness Details She presents to office with body aches She said recent diagnosis of fibromyalgia Diagnosed by water main inspector and given cymbalta and trazadone She started a few months ago so still in trial phase Trazadone helps with sleep; isnt sure how cymbalta is working Pt had onset of bilateral knee pain yesterday Heat helped but worse with ambulation She noticed today she has intermittent sharp pains and warmtht o joints today Bilateral shoulders, elbows, knees She has had sore joints in the past but usual symptoms were more achiness all over the body No recent travel No recent illness, congestion, fever, chills, cough Patient said channing thought knees were swollen when she got home but no other joint edema She took tylenol which helped + overall fatigued; normal appetite Denies recent tick bite or skin rashes. No known tick exposure PFSH Medical History (Updated 10/07/24 @ 10:45 by ANGELIKA Krishnamurthy) Fibromyalgia Surgical History Hx of eye surgery Social History Housing: Condominium Patient Tobacco Use Status: Never used Tobacco e-Cigarette/Vaping Use: Never Used service: No Current occupational status: employed Current occupational exposures/hazards: No Cognitive needs: No Hearing needs: No Vision needs: Yes Review of Systems Const Denies chills, Reports fatigue and Denies fever(s) Eyes Denies change in vision ENT Denies nasal congestion and Denies sore throat Card Denies chest pain and Denies dyspnea Resp Denies dyspnea Musc Reports myalgias, Reports arthralgias and Reports joint swelling Skin/Breast Denies erythema and Denies rash Neuro Denies paresthesias Endo Reports fatigue Physical Exam Vital Signs: Last Vital Signs Pulse 74 12/01/24 15:18 BP 124/80 12/01/24 15:18 Pulse Ox 98 12/01/24 15:18 Oxygen Delivery Method Room Air 12/01/24 15:18 BMI result Body Mass Index 19.6 General: Non-toxic, NAD. Speaking full sentences. Skin: Warm dry throughout. Eye: EOMI HENT: Airway patent. Uvula midline. No pharyngeal erythema or edema. No SENIOR TELECOMMUNICATIONS ENGINEER. Bilateral canals clear. TM non-erythematous, non-bulging. No TM perforation or hemotympanum noted. Respiratory: CTA bilaterally. No wheezes, rales or rhonchi Cardiac: RRR. No murmur. Radial pulse intact bilaterally 2+. No calf tenderness or pedal edema bilaterally. MSK: Full ROM extremities at elbows and knees but still slow movements with knee flexion/extension bilaterally. Non-specific joint ttp bilateral shoulders, elbows and knees. No ttp wrists and digits of hands bilaterally. Neurology: Alert. No aphasia or facial droop. Psych: Good mood and affect Assessment & Plan Assessment & Plan (1) Fibromyalgia: Code(s): M79.7 - Fibromyalgia Plan: Patient seen and evaluated. Discussed with PCP and pt may be on too low of dose. Best management would be to increase dose I had long discussion with pt in regards to tx options. I recommended best management would be to increase but she said due to her being naive to Cymbalta, she was worried about increasing dose She is aware that if she does not increase the dose, she may have more frequent flare ups and then will need to have further discussion with PCP about change in doses We discussed initial therapy of flare up with tylenol/ibuprofen but she had no relief with tylenol OTC Will trial Robaxin (lethargy, no alcohol or driving. No taking at night with Trazadone). Pt is aware of these and was given work note so she can take medicine tomorrow at home Discussed calling office with any concerns Patient gave verbal understanding and had no additional questions or concerns at time of discharge All questions answered Medications: New methocarbamol 500 mg PO TID 14 tabs 0RF Coding Level of Care Code Est Pt Level 3 (56769) Diagnoses Fibromyalgia M79.7
--- OUTSIDE RECORDS SUMMARY | 2024-12-01 18:11 | XMS_ITS | Encounter Summary ---
Author Organization [facility] Address [address] [place] [address] Care Team Providers Care Curbstone Setter Name Role Phone Marci Barth MD Primary Care Provider Rylee Ocampo MD Primary Care Provider [phone] Reason for Visit * Reason Onset Date Comments Faxed Refill 03/16/2020 Encounter Details Date Type Department Care Team Description 03/16/2020 Refill Medicine/Pediatrics - [address] [phone] Marci Barth MD Faxed Refill Social History Tobacco Use Types Packs/Day Years [...] Telephone Encounter - Ilda Gar M.A. - 03/17/2020 8:27 AM EDT Pedi pt pending appt 04/2020 * Telephone Encounter - Yvette Hoffman - 03/16/2020 11:44 AM EDT Patient would like script to be: E-PRESCRIBED/FAXED TO PHARMACY WHEN WAS THE PATIENT'S LAST APPOINTMENT IN ADULT MEDICINE? 02/22/2020 WHEN WAS THE LAST TIME THE PATIENT SAW THEIR PCP? 02/09/2020 Does patient have an upcoming appointment? Yes 05/08/2020 (THE MEDICATION REQUESTED IS ON THE MED LIST ABOVE) All of the medications requested were on the CURRENT MEDS list Did you check the Pharmacy information above?: YES Patient wants: 30 -day supply Is this a mail order prescription request ? NO If the refill is from a FAXED refill request what is the RX # listed on the fax? [id number] Patients current insurance carrier is: Payor: [employer] FFS / Plan: [employer] [place] / Product Type: MEDICAID RISK documented in this encounter Plan of Treatment Not on file documented as of this encounter Visit Diagnoses Not on filedocumented in this encounter Care Teams Curbstone Setter Relationship Specialty Start Date End Date Marci Barth MD PCP - General 01/24/09 11/06/20 Rylee Malave MD [address] [place] [id number] PCP - General Internal Medicine 11/07/20 documented as of this encounter
--- OUTSIDE RECORDS SUMMARY | 2024-12-01 18:11 | XMS_ITS | Encounter Summary ---
Author Organization [employer] [facility] Address [address] [place] [address] Care Team Providers Care Rubber Tire Curer Name Role Phone Marci Barth MD Primary Care Provider Rylee Ocampo MD Primary Care Provider [phone] Encounter Details Date Type Department Care Team Description 11/13/2016 Release of Information Medical Records [address] [place] [address] Abstract, Provider Social History Tobacco Use Types [...] on filedocumented in this encounter Care Teams Rubber Tire Curer Relationship Specialty Start Date End Date Marci Barth MD PCP - General 01/24/09 11/06/20 Rylee Malave MD [address] [place] [address] PCP - General Internal Medicine 11/07/20 documented as of this encounter
--- OUTSIDE RECORDS SUMMARY | 2024-12-01 18:11 | XMS_ITS | Encounter Summary ---
Author Organization [employer] [facility] Address [address] [place] [address] Care Team Providers Care Generator Technician Name Role Phone Marci Barth MD Primary Care Provider Rylee Ocampo MD Primary Care Provider [phone] Encounter Details Date Type Department Care Team Description 07/02/2013 Release of Information Medical Records [address] [place] [address] Abstract, Provider Social History Tobacco Use Types [...] on filedocumented in this encounter Care Teams Generator Technician Relationship Specialty Start Date End Date Marci Barth MD PCP - General 01/24/09 11/06/20 Rylee Malave MD [address] [place] [address] PCP - General Internal Medicine 11/07/20 documented as of this encounter
--- OUTSIDE RECORDS SUMMARY | 2024-12-01 18:11 | XMS_ITS | Encounter Summary ---
Author Organization [facility] Address [address] [place] [address] Care Team Providers Care Stone Splitter Name Role Phone Marci Barth MD Primary Care Provider Rylee Ocampo MD Primary Care Provider [phone] Reason for Visit * Reason Onset Date Comments Care Management 12/14/2018 Encounter Details Date Type Department Care Team Description 12/14/2018 Telephone [facility] - [address] [address] Marci Barth MD Care Management Social History Tobacco Use Types Packs/Day Years [...] encounter Miscellaneous Notes * Telephone Encounter - Gina Coronel CMA - 12/14/2018 1:07 PM EDT Received a referral for care management on this patient. Please review if patient qualify's, if notplease notify provider. documented in this encounter Plan of Treatment Not on file documented as of this encounter Visit Diagnoses Not on filedocumented in this encounter Care Teams Stone Splitter Relationship Specialty Start Date End Date Marci Barth MD PCP - General 01/24/09 11/06/20 Rylee Malave MD [facility] [place] [address] PCP - General Internal Medicine 11/07/20 documented as of this encounter
--- OUTSIDE RECORDS SUMMARY | 2024-12-01 18:11 | XMS_ITS | Encounter Summary ---
Author Organization [facility] Address [address] [place] [address] Care Team Providers Care Outdoor Recreation Specialist Name Role Phone Marci Barth MD Primary Care Provider Rylee Ocampo MD Primary Care Provider [phone] Encounter Details Date Type Department Care Team Description 02/16/2019 Transfer Records Medical Records [address] [place] [address] Abstract, Provider Social History Tobacco Use Types [...] on filedocumented in this encounter Care Teams Outdoor Recreation Specialist Relationship Specialty Start Date End Date Marci Barth MD PCP - General 01/24/09 11/06/20 Rylee Malave MD [address] [place] [address] PCP - General Internal Medicine 11/07/20 documented as of this encounter
--- OUTSIDE RECORDS SUMMARY | 2024-12-01 18:11 | XMS_ITS | Encounter Summary ---
Author Organization [facility] Address [address] [place] [address] Care Team Providers Care Millstone Cleaner Name Role Phone Marci Barth MD Primary Care Provider Rylee Ocampo MD Primary Care Provider Reason for Visit * Reason Comments E-prescribe Rx Request Encounter Details Date Type Department Care Team Description 12/06/2019 Refill Pediatrics - [address] [address] Marci Barth MD E-prescribe Rx Request Social History Tobacco Use [...] encounter Miscellaneous Notes * Telephone Encounter - Eusebia Hunter - 12/06/2019 1:43 PM EDT When was patients last PE/WCC? 12/2018 When is patients next PE/WCC scheduled? Wait listed Marci Barth RX REQUEST WHEN MED IS ON THE LIST: All of the medications requested were on the CURRENT MEDS list Did you check the Pharmacy information above?: YES Indicate how soon the patient needs the script: JOHNNY Patient would like script to be: E-PRESCRIBED/FAXED TO PHARMACY Is the doctor here today?: YES Can the message wait until the doctor returns?: NO Has the patient been told that the prescription will not be filled until the end of the day? NO Marci Barth Payor: [employer]FS / Plan: [facility] / Product Type: MEDICAID RISK documented in this encounter Plan of Treatment Not on file documented as of this encounter Visit Diagnoses Not on filedocumented in this encounter Care Teams Millstone Cleaner Relationship Specialty Start Date End Date Marci Barth MD PCP - General 01/24/09 11/06/20 Rylee Malave MD [address] [place] [phone] PCP - General Internal Medicine 11/07/20 documented as of this encounter
--- OUTSIDE RECORDS SUMMARY | 2024-12-01 18:11 | XMS_ITS | Encounter Summary ---
Author Organization [facility] Address [address] [place] [address] Care Team Providers Care It Technician Name Role Phone Marci Barth MD Primary Care Provider Rylee Ocampo MD Primary Care Provider [phone] Encounter Details Date Type Department Care Team Description 03/15/2015 Cooperative Education Director Report Medical Records [address] [place] [address] Giovani Stock Social History Tobacco Use Types [...] on filedocumented in this encounter Care Teams It Technician Relationship Specialty Start Date End Date Marci Barth MD PCP - General 01/24/09 11/06/20 Rylee Malave MD [address] [place] [address] PCP - General Internal Medicine 11/07/20 documented as of this encounter
--- OUTSIDE RECORDS SUMMARY | 2024-12-01 18:11 | XMS_ITS | Encounter Summary ---
Author Organization [facility] Address [address] [place] [address] Care Team Providers Care Internal Medicine Physician Assistant Name Role Phone Marci Barth MD Primary Care Provider Rylee Ocampo MD Primary Care Provider Reason for Visit * Reason Comments E-prescribe Rx Request Encounter Details Date Type Department Care Team Description 09/21/2018 Refill Pediatrics - [address] [address] Marci Barth MD E-prescribe Rx Request Social [...] encounter Miscellaneous Notes * Telephone Encounter - Marci Barth MD - 09/22/2018 12:19 PM EST Pt due for PE in December. BSRs please schedule. Refill sent. * Telephone Encounter - Ina Vizcaino - 09/22/2018 10:36 AM EST When was patients last PE/WCC? 12/09/17 When is patients next PE/WCC scheduled? Left message to book appt Marci Barth RX REQUEST WHEN MED IS ON THE LIST: All of the medications requested were on the CURRENT MEDS list Did you check the Pharmacy information above?: YES Indicate how soon the patient needs the script: OK FOR NEXT DAY Patient would like script to be: E-PRESCRIBED/FAXED TO PHARMACY Is the doctor here today?: YES Can the message wait until the doctor returns?: NO Has the patient been told that the prescription will not be filled until the end of the day? NO Marci Barth Payor: [employer] FFS / Plan: [employer] / Product Type: MEDICAID RISK documented in this encounter Plan of Treatment Not on file documented as of this encounter Visit Diagnoses Not on filedocumented in this encounter Care Teams Internal Medicine Physician Assistant Relationship Specialty Start Date End Date Marci Barth MD PCP - General 01/24/09 11/06/20 Rylee Malave MD [address] [place] [id number] PCP - General Internal Medicine 11/07/20 documented as of this encounter
--- OUTSIDE RECORDS SUMMARY | 2024-12-01 18:11 | XMS_ITS | Encounter Summary ---
Author Organization [facility] Address [address] [place] [address] Care Team Providers Care Back Shoe Operator Name Role Phone Marci Barth MD Primary Care Provider Rylee Ocampo MD Primary Care Provider [phone] Encounter Details Date Type Department Care Team Description 03/30/2019 Release of Information Medical Records [address] [place] [address] Abstract, Provider Social History Tobacco Use Types [...] on filedocumented in this encounter Care Teams Back Shoe Operator Relationship Specialty Start Date End Date Marci Barth MD PCP - General 01/24/09 11/06/20 Rylee Malave MD [address] [place] [address] PCP - General Internal Medicine 11/07/20 documented as of this encounter
--- OUTSIDE RECORDS SUMMARY | 2024-12-01 18:11 | XMS_ITS | Encounter Summary ---
Author Organization [facility] [employer] [facility] Address [address] [place] [address] Care Team Providers Care Supervisor Tellers Name Role Phone Marci Barth MD Primary Care Provider Rylee Ocampo MD Primary Care Provider [phone] Encounter Details Date Type Department Care Team Description 12/03/2018 Human Resources Department Supervisor Report Medical Records [address] [place] [address] Griselda Rich MD Social History Tobacco Use [...] on filedocumented in this encounter Care Teams Supervisor Tellers Relationship Specialty Start Date End Date Marci Barth MD PCP - General 01/24/09 11/06/20 Rylee Malave MD [address] [place] [address] PCP - General Internal Medicine 11/07/20 documented as of this encounter
--- OUTSIDE RECORDS SUMMARY | 2024-12-01 18:11 | XMS_ITS | Encounter Summary ---
Author Organization [facility] Address [address] [place] [address] Care Team Providers Care Card Mounter Name Role Phone Marci Barth MD Primary Care Provider Chuck Rylee Najera MD Primary Care Provider [phone] Encounter Details Date Type Department Care Team Description 11/22/2019 Hospital Medical Records [address] [place] [address] Social History Tobacco Use Types Packs/Day Years [...] on filedocumented in this encounter Care Teams Card Mounter Relationship Specialty Start Date End Date Marci Barth MD PCP - General 01/24/09 11/06/20 Rylee Malave MD [address] [place] [address] [phone] PCP - General Internal Medicine 11/07/20 documented as of this encounter
--- OUTSIDE RECORDS SUMMARY | 2024-12-01 18:11 | XMS_ITS | Encounter Summary ---
Author Organization [facility] Address [address] [place] [address] Care Team Providers Care Clerical Manager Name Role Phone Marci Barth MD Primary Care Provider Rylee Ocampo MD Primary Care Provider [phone] Encounter Details Date Type Department Care Team Description 12/13/2019 Orders Only Medical Records [address] [place] [address] Jose C Alberto MD Social History Tobacco [...] this encounter Results * OUTSIDE IMAGING (11/22/2019) oJse C Alberto MD RADIOLOGY documented in this encounter Visit Diagnoses Not on filedocumented in this encounter Care Teams Clerical Manager Relationship Specialty Start Date End Date Marci Barth MD PCP - General 01/24/09 11/06/20 Rylee Malave MD [address] [place] [address] [phone] PCP - General Internal Medicine 11/07/20 documented as of this encounter
--- OUTSIDE RECORDS SUMMARY | 2024-12-01 18:11 | XMS_ITS | Encounter Summary ---
Author Organization [facility] Address [address] [place] [address] Care Team Providers Care Pump Technician Name Role Phone Marci Barth MD Primary Care Provider Rylee Ocampo MD Primary Care Provider [phone] Encounter Details Date Type Department Care Team Description 07/14/2012 Multimedia Educational Specialist Report Medical Records [address] [place] [address] Giovani Stock Social History Tobacco Use Types [...] on filedocumented in this encounter Care Teams Pump Technician Relationship Specialty Start Date End Date Marci Barth MD PCP - General 01/24/09 11/06/20 Rylee Malave MD [address] [place] [address] PCP - General Internal Medicine 11/07/20 documented as of this encounter
--- OUTSIDE RECORDS SUMMARY | 2024-12-01 18:11 | XMS_ITS | Encounter Summary ---
Author Organization [facility] Address [address] [place] [address] Care Team Providers Care Dice Maker Name Role Phone Rylee Malave MD Primary Care Provider [phone] Reason for Visit * Reason Comments E-prescribe Rx Request Encounter Details Date Type Department Care Team Description 05/13/2022 Refill Pediatrics - [place] [address] [place] [address] Ritu Alfonso, ELECTRIC LOCOMOTIVE CRANE OPERATOR [address] [place] [address] E-prescribe Rx Request Social History Tobacco Use [...] > 60 05/08/2020 Pending appt with Chloé Jules, PAC 06/07/22 * Telephone Encounter - Anahiifeoma [...] N/A Patients current insurance carrier is: Payor: [facility] FFS / Plan: [facility] / Product Type: MEDICAID RISK documented in this encounter Plan of Treatment Not on file documented as of this encounter Visit Diagnoses Diagnosis Middle ear effusion, bilateral Tinnitus aurium, right documented in this encounter Care Teams Dice Maker Relationship Specialty Start Date End Date Rylee Malave MD [address] [place] [phone] PCP - General Internal Medicine 11/07/20 documented as of this encounter
== END 2024-12-01 15:48 | disposition home or self-care (01) ==
PROVIDERS: PCP Nurse Practitioner Family; Visit Provider Physician Assistant
DX: M79.7 Fibromyalgia (principal)

== ENCOUNTER 2025-02-01 15:12 | Outpatient (AMB) | payer BC, SELFPAY ==
[2025-02-01 15:15] VITALS: BP 118/74; PULSE 77; TEMP 36.4; O2SAT 98
--- NOTE | 2025-02-01 15:15 | A.OFFPC_ITS ---
Vital Signs 02/01/25 15:15 Height 5 ft 1 in Weight 106 lb BMI 20.0 BP 118/74 Blood Pressure Location Rt brachial Position Sitting Pulse 77 Pulse Source Pulse Oximeter Temp 97.6 F Temp Source Oral Pulse Oximetry (%) 98 Oxygen Delivery Method Room Air Intake Visit Reasons: PE Transportation Security Screener Required: No Allergies wheat Allergy (Verified 02/01/25 15:44) Gastrointestinal Upset Medication List - Last Reconciled 02/01/25 by MAYELIN KrishnamurthyP- albuterol sulfate 90 mcg/actuation 1 inh inhalation QID PRN duloxetine (Cymbalta) 30 mg PO DAILY trazodone 25 mg (1/2 x 50 mg) PO BEDTIME PRN 30 days Tobacco use date assessed: 10/07/24 Dental Screening Dental Screen Date: 10/07/24 HPI PE HPI Details History of Present Illness The patient is a 24-year-old female presenting for a wellness visit with a primary focus on her fibromyalgia management. She currently takes Cymbalta, which she wishes to discontinue. She reports stability in symptoms and denies any exacerbations. Her fibromyalgia treatment, specifically Cymbalta, is currently minimally effective with no mention of additional interventions needed. She denies any symptoms of cardiac or gastrointestinal nature. The visit also included discussion of her upcoming new job, which she anticipates positively. There is no other acute or chronic medical history reported or significant events noted from the past. 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 - Functional Status: Currently able to m anage her fibromyalgia symptoms with medication. - Family Planning: Not discussed. Review of Systems - Cardiovascular: Denies chest pain. - Respiratory: Denies shortness of breat h. - Gastrointestinal: Denies abdominal oje n, hematochezia, constipation, and diarrhea. denies any si or hi, fevers, chills, n/v Physical Exam General: Cooperative, healthy appearing, comfortable, no acute distress and well developed Orientation: Patient oriented x3 Limitations: No limitations Head: Normal to inspection Ears: Hearing grossly normal bilaterally Nose: Normal external nose present Face and sinus: Normal facial exam Eyes: Appearance normal, both eyes and all related structures Neck: Normal visual inspection and Yes full ROM Respiratory: Normal respiratory effort and able to speak in complete sentences. Clear to auscultation bilaterally Cardiovascular: Regular rate and rhythm. Normal S1 and S2 GI: Normal to inspection. Soft to palpation and nontender Skin: No rashes or lesions noted Neuro: Patient oriented x3 Extremities: Normal to inspection Results Plan The plan focuses on the tapering process of Cymbalta for fibromyalgia management. The patient will begin by cutting the dose to half a tablet daily for 2-3 weeks and then transitioning to every other day for 2-3 weeks (1/2 tab). Throughout this process, monitoring will be essential to assess efficacy and side effects. The patient?s engagement with her new job is anticipated to contribute positively to her overall health. No additional treatments or diagnostics are planned at present. Discussion Notes We discussed the patient's intention to taper off Cymbalta and outlined a stepwise reduction plan. The rationale is to prevent withdrawal symptoms while ensuring control over fibromyalgia symptoms. I explained the importance of monitoring her symptoms during the tapering process. We will reassess the need for further intervention as the tapering progresses. I emphasized returning for evaluation if she experiences any adverse symptoms. We spoke about her excitement regarding a new job, which is expected to have a beneficial impact on her mental well-being. Patient Instructions - Follow the tapering schedule for Cymba lta as discussed: half a tablet daily for 2-3 weeks, then half a tablet every other day for 2-3 weeks. - Monitor symptoms and report any new or worsening conditions. - Return for evaluation if experiencing any unusual symptoms. - Enjoy the start of your new job. [facility] Medical History Fibromyalgia Surgical History Hx of eye surgery Social History Housing: Condominium Patient Tobacco Use Status: Never used Tobacco e-Cigarette/Vaping Use: Never Used service: No Current occupational status: employed Current occupational exposures/hazards: No Cognitive needs: No Hearing needs: No Vision needs: Yes Questionnaire PHQ-9 Over the last 2 weeks, how often have you been bothered by any of the following problems? 6. Feeling bad about yourself - or that you are a failure or have let yourself or your family down: not at all 7. Trouble concentrating on things, such as reading the newspaper or watching television: nearly every day 8. Moving or speaking so slowly that other people could have noticed. Or the opposite - being so fidgety or restless that you have been moving around a lot more than usual: not at all 9. Thoughts that you would be better off or of hurting yourself in some way: not at all Source: Developed by Drs. Girish Rendon, Anthony Contreras and colleagues, with an educational tabitha from [employer] Thrive Questionnaire Date Thrive assessed: 02/01/25 I am a: Patient What is your living situation today?: I have a steady place to live Within the past 12 months, did the food you bought not last and you didn't have the money to get more?: Never true Within the past 12 months, did you worry whether your food would run out before you got money to buy more?: Never true Do you have trouble paying for medicines?: No Do you have trouble getting transportation to medical appointments?: No Do you have trouble paying your heating and electricity bill?: No Do you have trouble taking care of your child, family member or friend?: No Do you have trouble with day-to-day activities such as bathing, preparing meals, shopping, managing finances, etc.?: I choose not to answer this question Are you currently unemployed and looking for a job?: No Are you interested in more education?: No Please select the resources that you would like help with: None Currently or been in a relationship where the following occur: No concerns reported THRIVE Score: 0 WADE-7 AMB Questionnaire WADE-7 Date WADE - 7 assessed: 10/07/24 Source: Developed by Drs. Girish Rendon, Dominique Danielson, Anthony Martinez and colleagues, with an educational tabitha from [employer] Physical exam (Primary Care) Vital Signs: Last Vital Signs Temp 97.6 F 02/01/25 15:15 Pulse 77 02/01/25 15:15 BP 118/74 02/01/25 15:15 Pulse Ox 98 02/01/25 15:15 Oxygen Delivery Method Room Air 02/01/25 15:15 BMI result Body Mass Index 20.0 Tobacco/Smoking Status: Tobacco use Status Tobacco use date assessed 10/07/24 02/01/25 15:18 Patient Tobacco Use Status Never used Tobacco 02/01/25 15:18 e-Cigarette/Vaping Use Never Used 02/01/25 15:18 Thrive Assessment: Date of Thrive Assessment Date Thrive assessed 02/01/25 02/01/25 15:18 Currently or been in a relationship where the following occur: No concerns reported Coding Level of Care Code Est Pt Prev Care 18-39y(98189) Diagnoses Physical exam Z00.00 Assessment & Plan Assessment & Plan (1) Physical exam: Code(s): Z00.00 - Encounter for general adult medical examination without abnormal findings Category: Medical Plan . Orders: Orders Comprehensive [place]. Panel Fast Today Z00.00 - Encounter for general adult medical examination without abnormal findings TSH reflex Free T4 Today Z00.00 - Encounter for general adult medical examination without abnormal findings Complete Blood Count Auto Diff Today Z00.00 - Encounter for general adult medical examination without abnormal findings UA CC w/rflx Micro + Cult Today Z00.00 - Encounter for general adult medical examination without abnormal findings Lipid Panel Today Z00.00 - Encounter for general adult medical examination without abnormal findings
== END 2025-02-01 15:55 | disposition home or self-care (01) ==
LOC: HO.HMCC 15:13
PROVIDERS: PCP Nurse Practitioner Family; Visit Provider Nurse Practitioner Family
DX: Z00.00 Encounter for general adult medical examination without abnormal findings (principal)

== ENCOUNTER → 2025-02-01 15:12 | Outpatient (BNVA) | payer BC, SELFPAY | PROVIDERS: PCP Nurse Practitioner Family; Visit Provider Nurse Practitioner Family | DX: Z13.89 Encounter for screening for other disorder (principal) ==

== ENCOUNTER 2025-04-05 06:06 | Outpatient (REF) | payer BC, SELFPAY ==
--- OUTSIDE RECORDS SUMMARY | 2025-04-05 06:09 | XMS_ITS | Encounter Summary ---
Author Organization [facility] Address [address] [place] [address] Phone Care Team Providers Care Customs Brokerage Manager Name Role Phone Marci Barth MD Primary Care Provider Unava ilable Encounter Details Date Type Department Care Team (Late st Contact Info) Description 04/30/2019 Procedure Pass [facility] LW PERIOP DEPT [address] [place] [address] Social History Tobacco Use Types Packs/Day Years Used Date Smoking Tobacco: Never Smokeless Tobacco: Never Alcohol Use Standard Drinks/Week Comments Not Currently 0 (1 standard drink = 0.6 oz pur e alcohol) Comments No Sex and Gender Information Value Date Recorded Sex Assigned at Not on file Legal Sex Female 2:52 PM EDT Gender Identity Not on file Sexual Orientation Not on file documented as of this encounter Plan of Treatment Not on file documented as of this encounter Visit Diagnoses Not on filedocumented in this encounter Care Teams Customs Brokerage Manager Relationship Specialty Start Date End Date Marci Barth MD PCP - General Pediatrics 04/01/19 documented as of this encounter Additional Source Comments The information contained in this document represents components of the legal health record. It is not the complete legal health record.[facility]
--- OUTSIDE RECORDS SUMMARY | 2025-04-05 06:09 | XMS_ITS | Encounter Summary ---
Author Organization [facility] Address [address] [place] [address] Care Team Providers Care Nub Card Tender Name Role Phone Marci Barth MD Primary Care Provider Rylee Ocampo MD Primary Care Provider [phone] Encounter Details Date Type Department Care Team Description 03/15/2014 Inspector Quality Assurance Report Medical Records [address] [place] [address] Giovani Stock Social History Tobacco Use Types [...] on filedocumented in this encounter Care Teams Nub Card Tender Relationship Specialty Start Date End Date Marci Barth MD PCP - General 01/24/09 11/06/20 Rylee Malave MD [address] [place] [phone] PCP - General Internal Medicine 11/07/20 documented as of this encounter
[2025-04-05 10:14] LABS: MANUAL DIFF FLAG NO
[2025-04-05 10:20] LABS: Hematocrit 42.2 % (37.0-47.0); Hemoglobin 13.7 g/dl (12.0-16.0); Imm Gran Abs Auto 0.01 X10*3/uL (0.00-0.03); Imm Gran Pct Auto 0.2 % (0.0-0.4); Lymphocytes Absolute Auto 1.6 X10*3/uL (1.2-4.9); Mean Corpuscular HGB Conc 32.5 g/dl (31.0-35.0); Mean Corpuscular Hemoglobin 30.3 pg (27.0-33.0); Mean Corpuscular Volume 93.4 fL (80.0-98.0); NRBC Abs Auto 0.000 X10*3/uL (0.0-0.012); NRBC Pct Auto 0.0 /100WBC (0.0-0.2); Platelet Count 279 X10*3/uL (160-400); Red Blood Count 4.52 X10*6/uL (4.20-5.50); White Blood Count 4.8 X10*3/uL (4.8-10.8)
[2025-04-05 10:34] LABS: Appearance Urine Clear; Glucose Urine UA Negative (Negative); PH 6.5 (5.0-9.0); Specific Gravity - Urine 1.020 (1.005-1.025); UMIC TRIGGER UACC YES
[2025-04-05 10:55] LABS: Alanine Aminotransferase 17 U/L (0-31); Albumin Level 4.5 g/dL (3.5-5.0); Alkaline Phosphatase 55 U/L (39-117); Anion Gap 12 (12-20); Aspartate Amino Transferase 25 U/L (5-31); Blood Urea Nitrogen 8 mg/dL (9-16); Calcium 9.2 mg/dL (8.4-10.2); Carbon Dioxide 27 mmol/L (22-29); Chloride 106 mmol/L (96-108); Cholesterol 175 mg/dL (<200); Estimated Glomerular Filt Rate > 60; HDL Cholesterol 63 mg/dL (>40); Potassium 4.1 mmol/L (3.3-5.1); Sodium 141 mmol/L (135-145); Total Protein 7.3 g/dL (6.5-8.0); Triglycerides 98 mg/dL (<150)
== END 2025-04-05 06:07 | disposition home or self-care (01) ==
LOC: HO.HMGCLDS 06:06
PROVIDERS: PCP Nurse Practitioner Family; Visit Provider Nurse Practitioner Family
DX: Z00.00 Encounter for general adult medical examination without abnormal findings (principal)
CPT/HCPCS: 36415; 80053; 80061; 81001; 84443; 85025

== ENCOUNTER 2025-05-04 14:18 | Outpatient (AMB) | payer BC, SELFPAY ==
[2025-05-04 14:24] VITALS: BP 114/72; PULSE 83; TEMP 36.8; O2SAT 99; BMI 20.6
--- NOTE | 2025-05-04 14:24 | AM.OFFWIN_ITS ---
Intake Vital Signs 05/04/25 14:24 Height 5 ft 1 in Weight 109 lb BMI 20.6 BP 114/72 Blood Pressure Location Lt brachial Position Sitting Pulse 83 Pulse Source Pulse Oximeter Temp 98.3 F Temp Source Oral Pulse Oximetry (%) 99 Oxygen Delivery Method Room Air Intake Visit Reasons: EP-Sharp stomach pain Intake Note: pt presents with sharp pain to right lower quadrant and also under sternum feels like there's a knot Patient Tobacco Use Status: Never used Tobacco Allergies wheat Allergy (Verified 05/04/25 14:27) Gastrointestinal Upset Do you need a note to return to daycare/school/sports/work: No HPI HPI Comments History of Present Illness Details History - The patient is a 25-year-old female pr esenting with gastrointestinal discomfort - Stomach pain began the previous day, w orsening after meals, described as a knot in the epigastric region with sharp pain below the umbilicus. Reduced PO intake bc of this pain. - Associated symptoms include slight blake sea and diarrhea, with no vomiting reported. - History of gluten intolerance causing gastrointestinal upset when gluten is ingested but not Celiac. - Currently menstruating, reducing the l ikelihood of . - Mild pain with urination and lower mina k pain but no fevers. - Has appendix and gb still. Physical Exam General: Cooperative, healthy appearing, uncomfortable, no acute distress and well developed Orientation: Patient oriented x3 Limitations: No limitations Head: Normal to inspection Ears: Hearing grossly normal bilaterally Nose: Normal External nose present Face and sinus: Normal facial exam Mouth: normal, moist oral mucosa Eyes: Appearance normal, both eyes and all related structures Neck: Normal visual inspection and Yes full ROM Respiratory: Normal respiratory effort and able to speak in complete sentences. GI: soft, slight TTP with deep palpation to RLQ and epigastric area Skin: no rashes or lesions noted Neuro: Patient oriented x3 Extremities: moving all extremities normally PFSH Medical History Fibromyalgia Surgical History Hx of eye surgery Social History Housing: Condominium Patient Tobacco Use Status: Never used Tobacco e-Cigarette/Vaping Use: Never Used service: No Current occupational status: employed Current occupational exposures/hazards: No Cognitive needs: No Hearing needs: No Vision needs: Yes Review of Systems Const All systems reviewed & are unremarkable except as noted in HPI and below Physical Exam Vital Signs: Last Vital Signs Temp 98.3 F 05/04/25 14:24 Pulse 83 05/04/25 14:24 BP 114/72 05/04/25 14:24 Pulse Ox 99 05/04/25 14:24 Oxygen Delivery Method Room Air 05/04/25 14:24 BMI result Body Mass Index 20.6 Assessment & Plan Assessment & Plan (1) Epigastric abdominal pain: Code(s): R10.13 - Epigastric pain Plan: Plan Patient was informed and verbally consented to the use of an ambient scribe for clinic note documentation during this visit Possible developing Viral Gastroenteritis vs GERD, ruled out UTI. - VSS, pt well appearing and PE remarkable for slight TTP to deep palpation on RLQ and TTP epigastric - Can try Pepto-Bismol, warned it will turn stools dark. - Advise against taking Imodium if suspecting ingestion of contaminated food. - Monitor for fever and worsening symptoms. - Monitor symptoms and maintain hydration. - Recommend a bland diet, including rice, applesauce, tea, and toast. - Urinalysis to be performed to rule out UTI with lower abdominal and back pain. - UA negative for infection, + blood but pt menstruating - Monitor for fever or increased pain, and seek further evaluation by PCP or ED if symptoms worsen. Orders: Orders AMB Urinalysis Automated Today Z13.9 - Encounter for screening, unspecified Coding Level of Care Code Est Pt Level 3 (39694) Diagnoses Epigastric abdominal pain R10.13
--- OUTSIDE RECORDS SUMMARY | 2025-05-04 15:19 | XMS_ITS | Encounter Summary ---
Author Organization [facility] Address [address] [place] [id number] Phone Care Team Providers Care Screw Eye Assembler Name Role Phone Marci Barth MD Primary Care Provider Unava ilable Encounter Details Date Type Department Care Team (Late st Contact Info) Description 04/30/2019 Procedure Pass [facility] DEPT [address] [place] [address] Social History Tobacco Use Types Packs/Day Years [...] on filedocumented in this encounter Care Teams Screw Eye Assembler Relationship Specialty Start Date End Date Marci Barth MD PCP - General Pediatrics 04/01/19 documented as of this encounter Additional Source Comments The information contained in this document represents components of the legal health record. It is not the complete legal health record.[facility]
--- OUTSIDE RECORDS SUMMARY | 2025-05-04 15:19 | XMS_ITS | Clinical Summary ---
Author Organization [facility] Address [address] [place] [phone] Phone Care Team Providers Care Joy Operator Name Role Phone Marci Barth MD Primary Care Provider Unava ilable Allergies No known active allergies Medications albuterol 90 mcg/actuation inhaler Inhale 2 puffs into the lungs. 01/28/2019 Active ibuprofen (ADVIL,MOTRIN) 600 MG tablet Take 600 mg by mouth every 8 (eight) hours as needed. Active minocycline (MINOCIN) 50 MG capsule TAKE ONE CAPSULE BY MOUTH TWICE A DAY 09/22/2018 Active tretinoin (RETIN-A) 0.025 % cream Apply to affected area at bedtime to dry skin; wash off in AM 12/14/2018 Active desogestrel-eth inyl estradiol (APRI) 0.15-0.03 mg per tablet Take 1 tablet by mouth daily. Active acetaminophen (TYLENOL) 325 mg tablet Take 2 tablets (650 mg total) by mouth every 4 (four) hours as needed for mild pain. 04/30/2019 Active Social History Tobacco Use Types Packs/Day Years Used Date Smoking Tobacco: Never Smokeless Tobacco: Never Alcohol Use Standard Drinks/Week Comments Not Currently 0 (1 standard drink = 0.6 oz pur e alcohol) Education Answer Date Recorded Are you interested in more education? Not on kelyl e 01/03/2023 Are you concerned about learning? Not on file 01/03/2023 No 01/03/2023 No 01/03/2023 Digital Access Answer Date Recorded No 02/01/2023 No 02/01/2023 No 02/01/2023 Reliable internet access at home? Not on file 02/01/2023 Device with a working camera? Not on file Comments No Sex and Gender Information Value Date Recorded Sex Assigned at Not on file Legal Sex Female 2:52 PM EDT Gender Identity Not on file Sexual Orientation Not on file Last Filed Vital Signs Vital Sign Reading Time Taken Comments Blood Pressure 125/83 04/30/2019 8:49 AM EDT Pulse 76 04/30/2019 8:49 AM EDT Temperature 36.2 C (97.2 F) 04/30/2019 8:49 AM EDT Respiratory Rate 19 04/30/2019 8:49 AM EDT Oxygen Saturation 100% 04/30/2019 9:04 AM EDT Inhaled Oxygen Concentration - - Weight 46.3 kg (102 lb) 04/30/2019 7:24 AM EDT Height 154.9 cm (5' 1 ) 04/30/2019 7:24 AM EDT Body Mass Index 19.27 04/30/2019 7:24 AM EDT Plan of Treatment Health Maintenance Due Date Last Done Comments DEPRESSION SCREENING 2010 HEPATITIS C SCREENING 02/27/2016 HIV ONE-TIME SCREENING (18-65 YEARS) 02/27/2016 PAP SMEAR 2019 SMOKING STATUS SCREENING (Once After 26 Yrs) 02/27/2024 COVID-19 VACCINE ( season) 2024 Adult Td,Tdap Booster 05/08/2030 05/08/2020, 010 HIB VACCINES Completed 03/22/1999, 03/08, 01/15/1999, Additional history exists MENINGOCOCCAL VACCINES (ACWY) Completed 08/29/2014, 03/21/2010 PNEUMOCOCCAL VACCINES (0-49 years) Aged Out 12/09/2017 No longer eligible based on patient's age to complete this topic HEPATITIS A VACCINES Aged Out No long er eligible based on patient's age to complete this topic MENINGOCOCCAL VACCINES (B) Aged Out N o longer eligible based on patient's age to complete this topic Medical Devices Implanted Type Area Clearance Rep Device Identifier Shelf Expiration Date Model / Serial / Lot Tube [employer] Ritl[employer] - New [employer]/Vendor Use Ps # [id number] - [id number] Implanted:Qty: 1 on 04/30/2019 by Jayesh Johnson MD at [address] F [facility] I [employer] 10/28/2021 S1-1 [id number] / / [id number] Insurance WELLSENSE NON NSPG PCP [employer] [place] NON NSPG PCP [employer] NON NSPG PCP SILVER [employer] CONNECTORCARE WELL[employer] NON NSPG PCP SILVER [employer]ARITY CONNECTORCARE WELLSENSE NON NSPG PCP SILVER [employer]ARITY CONNECTORCARE WELLSENSE NON NSPG PCP SILVER [employer]ARITY CONNECTORCARE WELLS[employer] NON NSPG PCP [employer] [place] NON NSPG PCP S[employer] WE[employer] NON NSPG PCP S[employer] Advance Directives For more information, please contact: [phone] (9AM - 5PM [place], Friday-Friday) Documents on File Type Date Recorded Patient Hospice Clinical Supervisor Expl anation Healthcare Proxy 04/30/2019 Care Teams Joy Operator Relationship Specialty Start Date End Date Marci Barth MD PCP - General Pediatrics 04/01/19 Additional Source Comments The information contained in this document represents components of the legal health record. It is not the complete legal health record.[facility]
== END 2025-05-04 15:23 | disposition home or self-care (01) ==
PROVIDERS: PCP Nurse Practitioner Family; Visit Provider Physician Assistant
DX: Z13.9 Encounter for screening, unspecified (principal); R10.13 Epigastric pain

== ENCOUNTER → 2025-05-04 14:18 | Outpatient (BNVA) | payer BC, SELFPAY | PROVIDERS: PCP Nurse Practitioner Family; Visit Provider Physician Assistant | DX: R10.13 Epigastric pain (principal); R19.7 Diarrhea, unspecified; R11.0 Nausea; K90.41 Non-celiac gluten sensitivity; R30.9 Painful micturition, unspecified | CPT/HCPCS: 81003 ==